=== PATIENT | female | born 1990 | race Caucasian/White ===

== ENCOUNTER 2024-01-14 15:09 | Emergency (ER) | payer OTHER, SELFPAY ==
--- NOTE | ~2024-01-14 | XR_ITS ---
XR foot LT min 3V Ordering provider: GARFIELD Jesus History: . INVERSION INJURY, 5TH METATARSAL PAIN, HX TIB/FIB FX . Comparison: None. FINDINGS: BONES: No acute fracture. Postoperative changes in the distal tibia. Minimal lateral subluxation the proximal interphalangeal joint of the fifth toe is marked excluded. JOINT SPACES: Normal. No tarsal coalition. SOFT TISSUES: Normal. IMPRESSION: No acute osseous abnormality left foot. Lateral subluxation of the proximal interphalangeal joint of the fifth toe is highly suggestive. Clinical correlation advised. Reviewed, dictated and finalized at location A. IMPRESSION: No acute osseous abnormality left foot. Lateral subluxation of the proximal int erphalangeal joint of the fifth toe is highly suggestive. Clinical correlation advised.
[2024-01-14 15:16] VITALS: BP 120/69; PULSE 107; RESP 16; TEMP 36.9; O2SAT 100
--- NOTE | 2024-01-14 15:42 | ED.EXTPRO ---
HPI - Extremity Problem General Chief complaint: Extremity Injury, Lower Stated complaint: fall, left foot inj History of Present Illness HPI Narrative: Patient presents with left ankle pain. Patient states she was walking to her landscape and rolled her left ankle pain along the lateral side of left ankle. No deformity noted no open areas noted no bruising noted. Related Data Home Medications Medication Instructions Recorded Confirmed sertraline 100 mg tablet (Zoloft) 100 mg PO DAILY 06/10/20 01/14/24 tirzepatide (weight loss) 5 mg/0.5 5 mg subcut WEEKLY 01/14/24 01/14/24 mL subcutaneous pen injector (Zepbound) Allergies Allergy/AdvReac Type Severity Reaction Status Date / Time No Known Drug Allergies Allergy Unknown Unknown Verified 01/14/24 15:25 Review of Systems Review of Systems: CONSTITUTIONAL: Denies chills, or sweats. Reports fever and generalized body aches EYES: Denies visual changes, redness, or discharge. ENT: Denies otalgia. Reports nasal congestion runny nose and sore throat CARDIOVASCULAR: Denies chest pain, palpitations, or edema. RESPIRATORY: Denies dyspnea. Reports occasional cough GASTROINTESTINAL: Denies abdominal pain, nausea, vomiting, or diarrhea. GENITOURINARY: Denies dysuria or hematuria. SKIN: Denies rash or itching. MUSCULOSKELETAL: Denies back pain, joint pain, or myalgia. Reports generalized body aches NEUROLOGIC: Denies headache, numbness, or weakness. PSYCHIATRIC: Denies anxiety or depression. [facility] Past Medical History Medical History Anxiety Condyloma acuminata Depression Migraines Surgical History Surgical History History of surgery leg surgery 2016 History of tonsillectomy and adenoidectomy 1995 Previous section x1 Lucinda teeth extracted 2009 Family History Family History Grandparent Breast cancer Other Diabetes mellitus uncle Mother Brain tumor Endometriosis Social History Social History (Updated 03/08/23 @ 13:52 by Berta Garcia CMA) Smoking status: Current every day smoker Alcohol intake: current Drinks per week: 1 Substance use: never Lack of Transportation: No Lack of Food: Never True Current Housing: I Have Housing Concerned About Future Housing: No Difficulty Paying Gas/Electric Bills: No Difficulty Paying for Meds: No Currently Unemployed: No Education: Master's Degree or Higher Difficulty w/ Childcare or Family Care: No Comments At time of signature, agree with nursing past medical, surgical, social and family history. There is no relevant family history pertinent to the presenting complaint Exam Narrative: GENERAL: Well-appearing, well-nourished, and in no acute distress. HEAD: Normocephalic, atraumatic. EYES: PERRLA and EOMI. ENT: Nares clear, no rhinorrhea or epistaxis. Mucous membranes moist. NECK: Supple. CHEST: Clear to auscultation. No respiratory distress. HEART: Regular rate and rhythm. No murmur heard. Normal peripheral pulses. ABDOMEN: Soft, nontender, nondistended, normal active bowel sounds. EXTREMITIES: Normal range of motion. No edema. Rolled ankle KIN INTACT. NORMAL DP PULSE, NORMAL CAP REFILL. NORMAL SENSATION.pain along lateral side of left ankle SKIN: Warm, dry, no rash. NEURO: No focal deficits. Alert and oriented x3. Jarred Coma Scale Eye Opening: Spontaneous 4 Jarred Coma Scale Motor: Obeys Commands 6 Jarred Coma Scale Verbal: Oriented 5 [place] Coma Scale Total 15 Course Course Level of Care: Express Care Visit Vital Signs Vital signs: Vital Signs Temperature 36.9 C 01/14/24 15:16 Pulse Rate 107 H 01/14/24 15:16 Respiratory Rate 16 01/14/24 15:16 Blood Pressure 120/69 01/14/24 15:16 Pulse Oximetry 100 01/14/24 15:16 Oxygen Delivery
== END 2024-01-14 15:52 | disposition home or self-care (01) ==
PROVIDERS: Emergency Provider Nurse Practitioner Family; PCP Internal Medicine Infectious Disease
DX: S93.402A Sprain of unspecified ligament of left ankle, initial encounter (principal); X50.9XXA Other and unspecified overexertion or strenuous movements or postures, initial encounter; F17.200 Nicotine dependence, unspecified, uncomplicated; F41.9 Anxiety disorder, unspecified; F32.A Depression, unspecified
CPT/HCPCS: 73630; 99213; G0463

== ENCOUNTER 2024-09-20 17:58 | Emergency (ER) | payer OTHER, SELFPAY ==
--- OUTSIDE RECORDS SUMMARY | 2024-09-20 18:00 | XMS_ITS | Clinical Summary ---
Author Organization [facility] Address [address] [place] [address] Phone Care Team Providers Care Supervisor Electronic Testing Name Role Phone Ty Willard MD Primary Care Provider [phone] Allergies No known active allergies Medications sertraline (ZOLOFT) 50 MG Tablet 04/06/2020 Active Active Problems No known active problems Social History Tobacco Use Types Packs/Day Years Used Date Smoking Tobacco: Never Smokeless Tobacco: Never Comments No Sex and Gender Information Value Date Recorded Sex Assigned at Not on file Legal Sex Female 3:22 PM CDT Gender Identity Not on file Sexual Orientation Not on file Last Filed Vital Signs Vital Sign Reading Time Taken Comments Blood Pressure 100/77 06/17/2020 3:16 PM ADMITTED ATTORNEYS Pulse 78 06/17/2020 3:16 PM ADMITTED ATTORNEYS Temperature 36.2 C (97.1 F) 06/17/2020 3:16 PM ADMITTED ATTORNEYS Respiratory Rate - - Oxygen Saturation 98% 06/17/2020 3:16 PM ADMITTED ATTORNEYS Inhaled Oxygen Concentration - - Weight - - Height - - Body Mass Index - - Plan of Treatment Health Maintenance Due Date Last Done Comments Hepatitis C Virus (HCV) Screening 1991 Hepatitis B Immunization (1 of 3 - 19+ 3-dose series) 09/01/2010 Influenza Immunization (#1) 12/31/202312/2019, 02/14/2019 SARS-COV-2 Immunization ( season) 2023 02/06/2021, 07/03/2020, 06/11/2020 Respiratory Syncytial Virus (RSV) Immunization (Adult) (1 - 1-dose 75+ series) 09/01/2066 Meningococcal Immunization (ACWY) Aged Out 04/21/2009 No longer eligible based on patient's age to complete this topic DTaP/Tdap/Td Immunization Discontinued 2019, 07/14/2005 TdaP Immunization Completed 06/25/2019, 07/14/2005 Pneumococcal Immunization Combined Aged Out No longer eligible based on patient's age to complete this topic Rotavirus Immunization Aged Out No lo nger eligible based on patient's age to complete this topic Care Teams Supervisor Electronic Testing Relationship Specialty Start Date End Date Ty Willard MD [address] [id number] PCP - General Internal Medicine 08/25/17
--- OUTSIDE RECORDS SUMMARY | 2024-09-20 18:00 | XMS_ITS | Referral Summary ---
Author Organization [facility] [address] Address [address] [place] [address] Phone Care Team Providers Care Safe Deposit Box Rental Clerk Name Role Phone Ty Willard MD Primary Care Provider [phone]- [phone] Kymberly Dalton MD Unavailable [phone] Allergies No known active allergies Medications sertraline (ZOLOFT) 100 mg tabletIndicatio ns:Major depressive disorder with single episode, in full remission TAKE 1 TABLET BY MOUTH EVERY DAY 90 tablet 1 4 Active roflumilast (Zoryve) 0.3 % cream Apply topically daily Active tirzepatide, weight loss, (Zepbound) 7.5 mg/0.5 mL pen injector Inject 0.5 mL (7.5 mg total) under the skin once a week 2 mL 2 5 Active Active Problems Problem Noted Date Diagnosed Date Sleep-disordered breathing 01/02/2024 Strep pharyngitis 07/12/2022 Assessment & Plan (07/12/2022 1:20 PM CDT): + exposure at work, symptoms started yesterday. Base on exam and exposure will treat for strep. Rxd amoxicillin as directed. OTC symptom management reviewed. Change toothbrush after finishing amox. Push fluids. Work not provided, copy in chart. Call with any changes or concerns. History of pre-eclampsia 07/31/2019 Pulsatile tinnitus of right ear 03/15/2019 Assessment & Plan (03/15/2019 4:40 PM ASSOCIATE SCIENTIST): Hearing test - call with results Good hydration 64 ounces caffeine free and soda free fluid Reduce salt intake Monitor Blood pressure Would recommend Imaging after delivery Nasal saline followed by Flonase 2 sprays into each nostril while looking down over the sink, do not sniff in or blow nose after use. Avoid ear cleaning techniques Avoid water to ears ETD (Eustachian tube dysfunction), right 019 Assessment & Plan (03/15/2019 4:40 PM ASSOCIATE SCIENTIST): Hearing test - call with results Good hydration 64 ounces caffeine free and soda free fluid Reduce salt intake Monitor Blood pressure Would recommend Imaging after delivery Nasal saline followed by Flonase 2 sprays into each nostril while looking down over the sink, do not sniff in or blow nose after use. Avoid ear cleaning techniques Avoid water to ears History of abnormal cervical Pap smear 9 Overview (07/31/2019): Note: h/o of colpo at age 20 Personal history of other en docrine, metabolic, and immunity disorders 02/14/2019 Overview (07/31/2019): Note: maternal 1/2 uncle type 1 diabetes Personal history of other (h ealed) physical injury and trauma 02/14/2019 Overview (07/31/2019): Note: bonifacio in left leg from a fall down a flight of stairs STD (female) 02/14/2019 Overview (07/31/2019): Note: pt has HPV Mental disorder 02/14/2019 Overview (07/31/2019): Note: generalized aniexity dx at age 16 Weight loss counseling, encounter for 01/23/2019 Assessment & Plan (05/17/2024 6:27 PM ASSOCIATE SCIENTIST): PATIENT HAS DONE EXCEPTIONALLY WELL ON ZEPBOUND . CURRENTLY ON A MAINTENANCE DOSAGE Acne vulgaris 04/16/2018 Migraine with aura and without status migrainosu s 04/10/2017 Routine physical examination 04/10/2017 Assessment & Plan (11/13/2023 6:23 PM CDT): IMMUNIZATIONS WERE REVIEWED BASED ON SYMPTOMS TIM IS SUSPECTED ARRANGE HOME SLEEP STUDY OBEISTY : LEVEL 2 ON MONJAURO PLUS DIETARY COUNSELLING DONE WELL BALJIT : CHRONIC AND STABLE DERMATOLOGY REFERRAL EYE EXAM AND DENTAL UPTODATE BANK COMPLIANCE OFFICER UPTODATE Closed fracture of shaft of tibia 10/16/2015 Overview (05/30/2019): 2016 - Left leg bonifacio tib/fib# Fall down stairs Fracture of base of fifth metatarsal bone 2015 Abnormal cervical Papanicolaou smear 08/10/2012 Overview (08/06/2016): Abnormal Pap smear of cervix Major depressive disorder wi th single episode, in full remission 04/30/2011 Overview (08/04/2016): Depression, major Assessment & Plan (05/17/2024 6:25 PM ASSOCIATE SCIENTIST): CHRONIC AND STABLE ON ZOLOFT 100 MG P OQDAY Resolved Problems Problem Noted Date Diagnosed Date Resolved Date History of gestational hypertension 07/31/2019 07/31/2019 care following delivery 07/15/2019 07/31/2019 Overview (07/17/2019): # ID: Afebrile. No signs/symptoms of infection. # Heme: EBL 950 mL. No symptoms acute blood loss anemia. CBC stable from 11.7- >10.3 # CV/Pulm: Pre-eclampsia without severe features - on no meds. Asymptomatic, denies GODFREY/RUQ pain/vision changes. CBC/CMP WNL, UPC 0.370. Bps well controlled nifedipine 30 mg XL daily, will monitor Bps today and consider initiation of medications # GI/: Tolerating PO. Voiding spontaneously. # Pain: Controlled with above regimen. # depression: well controlled on sertraline 50 mg, grieving appropriately, will continue followup loss coordinator and [facility] # Post DVT prophylaxis: Patient has the following moderate risk factors: BMI>30 and Preeclampsia. Her post prophylaxis plan is SCDs and early ambulation # MOC: Undecided # MOF: Both formula and # Disposition: Continue routine care considering discharge today pending BP control Elevated blood pressure affe cting in first trimester, antepartum 07/10/2019 0 Overview (07/10/2019): 07/09: BP 142/100, repeat 128/94 Denies h/o of cHTN Denies symptoms of preE Sent to [facility] for r/o preE- [facility] staff and fellow notified BP cuff sent to pharmacy, if d/c'd home recommend daily BP monitoring. Parameters and precautions reviewed. If another mild range BP > 4 hrs apart will be diagnosed with gHTN and will recommend weekly appointments/labs Gestational hypertension, third trimester 07/10/2019 07/31/2019 Overview (07/10/2019): - BP 142/100 (0945) and 124/90 (1315) - upc 0.172, CMP CBC and uric acid WNL 07/09 - although not 4h apart, strongly suspect gHTN - counseled 07/09 re: risks of progression to preeclampsia. Has BP cuff at home, recommended to check BP BID and keep log. Discussed recommendation for frequent surveillance. Per pt, plan is for delivery ~37 weeks, which is our recommendation for this likely diagnosis. Preeclampsia symptoms reviewed. 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 Counseled on risk of PTL and recommendations for immediate hospital evaluation for RICCO or ptl Discussed options for repeat US in 1 week but that it would not change our management at this time, pt declines repeat scan IUGR (intrauterine growth re striction) affecting care of mother, second trimester, fetus 2 05/31/2019 07/31/2019 Overview (07/10/2019): - Twin 2 with CDH and IUGR and iAEDF - Counseled no testing as survival is likely 0% at this gestational age and puts Twin 1 at risk - Plans to start 2x/weekly testing in [place] Diaphragmatic hernia, , affecting care of mother, antepartum, fetus 2 05/24/2019 0 Overview (07/10/2019): Left Lobe of Liver, stomach and bowel herniated in Left thorax. Dextrocardia LHR O/E 0.17 MRI TLV O/E 8% Genetics not performed but potentially interested later in . Father had a brother with CDH ( delivered at EGA 23 weeks). Patient has been counseled regarding poor prognosis for survival. Plans to relocate to [place] for full interventions of Twin 2. Plans to start 2x/weekly testing when she arrives. complicated by con genital diaphragmatic hernia 05/14/2019 07/31/2019 Overview (06/24/2019): FCC 05/14/19 Twin 2 (maternal left) Liver up LHR @ 23 weeks 0.52 (trace method) O/E LHR 0.24 Genetics - none Pt considering amniocentisis to be discussed at division meeting on 06/25 05/21 - MRI & echo completed - 8% Total Lung Volume, 19% liver up S/p consults with Medicine (Paige Martins) Pt relocating to [facility] ([facility]) in [place], [place] on 07/15 for delivery and treatment. Depression during in second trimester 05/08/2019 07/31/2019 Overview (06/25/2019): - Long standing depression, diagnosed age 16 - Zoloft 50mg daily Reports mood is stable Supervision of high-risk pre gnancy, unspecified trimester 05/02/2019 07/31/2019 Overview (06/26/2019): [x] Full M Care; Referring Provider: Perez Gonzalez [phone] [x] Dating Criteria:LMP unknown. US 04/09/19 with AUBREE 09/04/19 [x] Labs: Rh [A+], Ab [negative], Rubella [immune], HIV [non-reactive], HepBSAg [non-reactive], RPR [non-reactive], GC/CT [negative/negative] [x] Genetic Screenin02/14/19 Cystic Fibrosis: Negative [x] CBC/Hgb 13.9/42.5/plt 307 [x] UCx: 02/14/19 negative [x] Pap: NILM [] LD ASA (if indicated) starting at 12 weeks: [] [facility] referral (if indicated) 2nd Tri Labs: [x] Anatomy ultrasound: see above [x] CBC/1hr gtt at 24-28wks: 04/04/19: 12.3/37.0/plt 245; 05/25/19 11.5/34.6/plt 243; GTT 164, 3 hr GTT: 92/173/177/91- wnl [x] Flu Shot (Dec-Mar): 02/14/19 [x] Tdap (27-36wks): 06/25 3rd Tri Labs and delivery in [place]. Patient plans to relocate in 3 weeks. Dichorionic diamniotic twin in second trimester 05/02/2019 07/31/2019 Overview (07/10/2019): DCDA twins via letrozole and IUI. EDC by IUI conception date 09/09/19. US 05/09/19 shows: Twin 1: Vertex, 569g (78%ile), DVP 4.8cm, Posterior placenta with no previa, normal anatomy but incomplete feet views Twin 2: Vertex, 457g (19%ile), DVP 5.7cm, Anterior placenta. Large left CDH with LHR 0.058 and O/E LHR 2.6% in poor prognosis range with stomach, bowel, and portion of liver in chest with medistinal shift heart in right thorax. Previously counseled 06/25: Twin 1: EFW 1,552g (79%), MPV 6.6 Twin 2: EFW 1,067g (3%), presence of diastolic flow, MVP 8.4 (poly) O/E 16%- severe Plan: - Patient previously declined amniocentesis but now considering having it done when she relocates to [facility] - s/p Care Consult - s/p echocardiogram - s/p MRI - Consultation with Neonatology, PACT, surgery as needed - Serial ultrasounds during to monitor growth and twin 2 status - Plans to relocate to [place] next week and stay until delivery Immunizations Immunization Administration Dates Next Due HPV, Quadrivalent 10/02/2008,06/16/2008,04/10/20 08 Influenza, Quadrivalent, Spl it, Preservative Free, Intramuscular 02/07/2020,02/14/2019 Influenza, Trivalent, Preser vative Free, Intramuscular 05/17/2024 Influenza, Unspecified 02/20/2023(Deferred: Latonya ent Refused) Meningococcal Polysaccharide (Menomune) 04/21/2009 Pfizer SARS-CoV-2 Monovalent Vaccination (12+ Yrs) PURPLE 02/06/2021 Tdap 06/25/2019,07/14/2005 Varicella 06/16/2008,03/11/1997 Social History Tobacco Use Types Packs/Day Years Used Date Smoking Tobacco: Every Day Vaping Smokeless Tobacco: Never Tobacco Cessation:Ready to Q uit: Not Asked; Counseling Given: Not Answered Alcohol Use Standard Drinks/Week Comments No 0 (1 standard drink = 0.6 oz pur e alcohol) PHQ-2 Answer Date Recorded PHQ-2 Total Score (If total score is 3 or more points, staff should administer the PHQ-9) 0 11/13/2023 Comments Unknown Sex and Gender Information Value Date Recorded Sex Assigned at Not on file Legal Sex Female 1:45 AM ASSOCIATE SCIENTIST Gender Identity Female 08/12/2021 7:36 AM CDT Sexual Orientation Something else 08/12/2021 7: 36 AM CDT Last Filed Vital Signs Vital Sign Reading Time Taken Comments Blood Pressure 104/72 05/17/2024 3:14 PM ASSOCIATE SCIENTIST Pulse 81 05/17/2024 3:14 PM ASSOCIATE SCIENTIST Temperature 36.4 C (97.5 F) 05/17/2024 3:14 PM ASSOCIATE SCIENTIST Respiratory Rate 16 05/17/2024 3:14 PM ASSOCIATE SCIENTIST Oxygen Saturation 99% 05/17/2024 3:14 PM ASSOCIATE SCIENTIST Inhaled Oxygen Concentration - - Weight 79.1 kg (174 lb 6.4 oz) 05/17/2024 3:14 P M ASSOCIATE SCIENTIST Height 177.8 cm (5' 10 ) 05/17/2024 3:14 PM ASSOCIATE SCIENTIST Body Mass Index 25.02 05/17/2024 3:14 PM ASSOCIATE SCIENTIST Plan of Treatment Not on file Procedures Procedure Name Priority Date/Time Associated Diagnosis Comments HEPATITIS C ANTIBODY Routine 02/14/2019 THINPAP, REFLEX HPV ALL PTH Routine 08/10/2012 1:32 PM CDT from Last 3 Months or Most Recently Relevant to Health Maintenance Results * Hepatitis C antibody (02/14/2019) SCRIBED HCV ab non-reacti ve Blood specimen (specimen) us Perez Gonzalez MD LAB MICROBIOLOGY - GENERAL OR DERABLES Final Result * ThinPrep Pap, Reflex HPV all pth (08/10/2012 1:32 PM CDT) SOURCE: SEE NOTE [facility] RESULTS Comment:Cervix, Endocervix CLINICAL INFORMATION: SEE NOTE [facility] RES[facility] Comment:Information not prov ided LMP SEE NOTE [facility] RESULTS Comment:[id number] Previous Pap SEE NOTE [facility] Comment:[id number] Prev. Bx SEE NOTE [facility] RES[facility] Comment:INFORMATION NOT PROV IDED Pap, specimen adequacy SEE NOTE [facility] RESULTS Comment: Satisfactory for evaluation. Endocervical/transformation zone component absent. HPV interp SEE NOTE [facility] Comment:Negative for intraep ithelial lesion or malignancy. Lactobacillus species SEE NOTE [facility] RES[facility] Comment: This Pap test has been evaluated with computer assisted technology. Based on the cytology result, reflex High Risk HPV DNA testing was not performed. Rear Load Truck Driver SEE NOTE [facility] RESULTS Comment: MAF, CT(ASCP) Test performed at [facility] [address] [address] Director: SANDEE LOPEZ DO [facility] 08/10/2012 1:32 PM CDT us Susu Sousa LAB PATHOLOGY ORDERABLES Final R esult [facility] HISTORICAL RESULTS from Last 3 Months or Most Recently Relevant to Health Maintenance Insurance [employer] OPEN ACCESS HE[employer] OPEN ACCESS [employer] OPEN ACCESS [employer] OPEN ACCESS Advance Directives For more information, please contact: [phone] * Full Code (Latest Code Status on File) Date Activated Date Inactivated Comments 07/14/2019 1:50 AM 07/17/2019 4:45 PM * Full Code Date Activated Date Inactivated Comments 07/13/2019 9:42 PM 07/14/2019 1:50 AM Care Teams Safe Deposit Box Rental Clerk Relationship Specialty Start Date End Date Ty Willard MD [address] [place] [address] PCP - General 07/29/16 Kymberly Dalton MD [address] [facility] [address] [place] [address] Referring Physician Obstetrics and Gynecology 08/12/21
--- OUTSIDE RECORDS SUMMARY | 2024-09-20 18:00 | XMS_ITS | Encounter Summary ---
Author Organization [facility] Address [address] [place] [address] Phone Care Team Providers Care Heavy Cleaner Name Role Phone Ty Willard MD Primary Care Provider [phone]- [phone] Encounter Details Date Type Department Care Team (Late st Contact Info) Description 04/29/2022 Lab Requisition [facility] Services [address] [place] [address] Odilon Whitney MD [address] [place] [address] [address] [place] [address] Encounter for screening for COVID-19 Social History Tobacco Use Types Packs/Day Years Used Date Smoking Tobacco: Never Smokeless Tobacco: Never Comments No Sex and Gender Information Value Date Recorded Sex Assigned at Not on file Legal Sex Female 3:22 PM CDT Gender Identity Not on file Sexual Orientation Not on file documented as of this encounter Plan of Treatment Not on file documented as of this encounter Procedures Procedure Name Priority Date/Time Associated Diagnosis Comments SARS-COV-2 BY MOLECULAR Routine 04/29/2022 11:20 AM FONDANT PUFF MAKER Encounter for screening for COVID-19 documented in this encounter Results * SARS-COV-2 BY MOLECULAR (04/29/2022 11:20 AM FONDANT PUFF MAKER) SARSCOV2 NOT DETECTED (Referen ce Range for this test is Not Detected ) [facility] THERMOFISHER FAST DX 04/30/2022 1:07 PM FONDANT PUFF MAKER [facility] Comment:This test was perfor med by a RT-PCR method. Other Non-Phlebotomy Collection / Unknown 04/29/2022 11:20 AM FONDANT PUFF MAKER 04/29/2022 4:09 PM FONDANT PUFF MAKER Narrative [facility] - 04/30/2022 1:07 PM FONDANT PUFF MAKER Authorized Fact Sheets about this test for providers and patients are available at: https://www.fda.gov/medical-devices/gsdpbjobt-ylfkxdrdin-dqrynsl-devices/emergen -us e-authorizations us Odilon Whitney MD MICROBIOLOGY - GENERAL ORDERAB LES Final Result [facility] [address] [place] [address], documented in this encounter Visit Diagnoses Diagnosis Encounter for screening for COVID-19 documented in this encounter Additional Health Concerns Infection Onset Date Last Indicated Resolved Time COVID - 19 04/29/2022 04/29/2022 05/09/2022 12:1 9 AM FONDANT PUFF MAKER documented as of this encounter Care Teams Heavy Cleaner Relationship Specialty Start Date End Date Ty Willard MD [address] [address] PCP - General Internal Medicine 08/25/17 documented as of this encounter
--- OUTSIDE RECORDS SUMMARY | 2024-09-20 18:00 | XMS_ITS | Encounter Summary ---
Author Organization [facility] Healthcare Address [address] [place] [address] Care Team Providers Care Clinical Researcher Name Role Phone Ty Willard MD Primary Care Provider [phone] Kymberly Dalton MD Unavailable [phone] Encounter Details Date Type Department Care Team (Late st Contact Info) Description 01/14/2024 Orders Only [facility] [address] [place] [address] Scanning, Provider Social History Tobacco Use Types Packs/Day Years Used Date Smoking Tobacco: Every Day Vaping Smokeless Tobacco: Never Alcohol Use Standard Drinks/Week Comments No 0 (1 standard drink = 0.6 oz pur e alcohol) PHQ-2 Answer Date Recorded PHQ-2 Total Score (If total score is 3 or more points, staff should administer the PHQ-9) 0 11/13/2023 Comments Unknown Sex and Gender Information Value Date Recorded Sex Assigned at Not on file Legal Sex Female 1:45 AM SEISMIC SURVEY ASSISTANT Gender Identity Female 08/12/2021 7:36 AM CDT Sexual Orientation Something else 08/12/2021 7: 36 AM CDT documented as of this encounter Plan of Treatment Not on file documented as of this encounter Procedures Procedure Name Priority Date/Time Associated Diagnosis Comments SCAN - RADIOLOGY/IMAGING 01/14/2024 documented in this encounter Results * SCAN - RADIOLOGY/IMAGING (01/14/2024) Anatomical Region Laterality Modality Other us Provider Scanning Final Result documented in this encounter Visit Diagnoses Not on filedocumented in this encounter Care Teams Clinical Researcher Relationship Specialty Start Date End Date Ty Willard MD [address] [place] [address] PCP - General 07/29/16 Kymberly Dalton MD [address] [facility] [address] [place], [place] [id number] Referring Physician Obstetrics and Gynecology 08/12/21 documented as of this encounter
--- OUTSIDE RECORDS SUMMARY | 2024-09-20 18:00 | XMS_ITS | Encounter Summary ---
Author Organization [facility] Address [address] [place] [address] Phone Care Team Providers Care Composition Weatherboard Installer Name Role Phone Ty Willard MD Primary Care Provider [phone] Encounter Details Date Type Department Care Team (Late st Contact Info) Description 05/26/2021 Lab Requisition [facility] [address] [place] [address] Feli Guzman, GARMENT STEAMER, RUFFLING HEMMER [employer] [address] [place] [address] Encounter for pre-employment examination Social History Tobacco Use Types Packs/Day Years Used Date Smoking Tobacco: Never Smokeless Tobacco: Never Comments No Sex and Gender Information Value Date Recorded Sex Assigned at Not on file Legal Sex Female 3:22 PM CDT Gender Identity Not on file Sexual Orientation Not on file COVID-19 Exposure Response Date Recorded In the last month, have you been in contact with someone who was confirmed or suspected to have Coronavirus / COVID-19? Unable to assess 05/26/2021 1:55 PM PROPERTY UNDERWRITER documented as of this encounter Plan of Treatment Not on file documented as of this encounter Procedures Procedure Name Priority Date/Time Associated Diagnosis Comments QUANTIFERON-TB GOLD PLUS Routine 05/26/2021 10:20 AM PROPERTY UNDERWRITER Encounter for pre-employment examination documented in this encounter Results * QUANTIFERON-TB GOLD PLUS (05/26/2021 10:20 AM PROPERTY UNDERWRITER) NIL CONTROL 0.02 <8.01 IU/mL 05/28/2021 12:56 PM [facility] TB ANTIGEN 1 0.00 <0.35 IU/mL 05/28/2021 12:56 PM [facility] TB ANTIGEN 2 0.00 <0.35 IU/mL 05/28/2021 12:56 PM [facility] MITOGEN CONTROL 2.21 >0.49 IU/mL 05/28/19 12:56 PM [facility] INTEPRETATION TB NEGATIVE NEGATIVE, NEGATIVE (TB antigen response less than 25% of internal negative control value) 05/28/2021 12:56 PM [facility] Comment:No immune response t o Mycobacterium tuberculosis antigens was noted. M. tuberculosis infection unlikely. Blood Venipuncture / Unknown 05/26/2021 10:20 AM PROPERTY UNDERWRITER 05/26/2021 3:59 PM PROPERTY UNDERWRITER Narrative [facility] - 05/28/2021 12:56 PM PROPERTY UNDERWRITER A POSITIVE QUANTIFERON-TB GOLD PLUS RESULT SHOULD NOT BE THE SOLE OR DEFINITIVE BASIS FOR DETERMINING INFECTION WITH M. TUBERCULOSIS. Diagnosing or excluding tuberculosis disease, and assessing the probability of LTBI, requires a combination of epidemiological, historical, medical and diagnostic findings (e.g., acid fast bacilli (AFB) smear and culture, chest xray) that should be taken into account when interpreting QFT-Plus results. Furthermore, the magnitude of the measured gamma interferon level cannot be correlated to stage or degree of infection, level of immune responsiveness, or likelihood for progression to active disease. The Nil control adjusts for background (e.g., elevated levels of circulating gamma interferon or presence of heterophile antibodies). The Mitogen control serves as an internal positive control and verifies each specimen tested can produce a gamma interferon response. Low mitogen may occur with insufficient lymphocytes, reduced lymphocyte activity due to improper specimen handling, filling/mixing of the Mitogen tube, or inability of the patient's lymphocytes to generate gamma interferon. Infection with other Mycobacteria, including M. kansasii, M. szulgai, and M. marinum, may cause positive results. A negative QuantiFERON-TB Gold Plus result does not preclude the possibility of M. tuberculosis infection or tuberculosis disease: false negative results can be due to stage of infection (e.g., specimen obtained prior to the development of cellular immune response), co-morbid conditions which affect immune function, or other individual immunological factors. The minimum number of lymphocytes required for a reliable test result has not been established and may also be variable. The performance of the [place] format of the QuantiFERON-TB Gold Plus test has not been extensively evaluated with specimens from the following groups of individuals: 1. Individuals who have impaired or altered immune function such as those who have HIV infection or AIDS; those who have transplantation managed with immunosuppressive treatment; or others who receive immunosuppressive drugs (e.g., corticosteroids, methotrexate, azathioprine, cancer chemotherapy); and those who have other clinical conditions: diabetes, silicosis, chronic renal failure, hematological disorders (e.g., leukemia and lymphomas), and other specific malignancies (e.g., carcinoma of the head or neck and lung). 2. Individuals younger than age 17 years 3. women Feli Guzman APRN, CNP IMMUNOLOGY ORDERABLES F inal Result [facility] [address] [place] [address], documented in this encounter Visit Diagnoses Diagnosis Encounter for pre-employment examination Health examination of defined subpopulation documented in this encounter Additional Health Concerns Infection Onset Date Last Indicated Resolved Time COVID - 19 04/29/2022 04/29/2022 05/09/2022 12:1 9 AM PROPERTY UNDERWRITER documented as of this encounter Care Teams Composition Weatherboard Installer Relationship Specialty Start Date End Date Ty Willard MD [address] [address] PCP - General Internal Medicine 08/25/17 documented as of this encounter
--- OUTSIDE RECORDS SUMMARY | 2024-09-20 18:00 | XMS_ITS | Encounter Summary ---
Author Organization [facility] Address [address] [place] [address] Phone Care Team Providers Care Reclamation Kettle Tender Name Role Phone Ty Willard MD Primary Care Provider [phone] Perez Gonzalez MD Unavailable [phone] Kymberly Dalton MD Unavailable [phone] Encounter Details Date Type Department Care Team (Late st Contact Info) Description 08/30/2017 Orders Only [facility] [address] [place] [address] Ty Willard MD [address] [place] [address] Social History Tobacco Use Types Packs/Day Years Used Date Smoking Tobacco: Every Day Smokeless Tobacco: Never Alcohol Use Standard Drinks/Week Comments No 0 (1 standard drink = 0.6 oz pur e alcohol) Comments Unknown Sex and Gender Information Value Date Recorded Sex Assigned at Not on file Legal Sex Female 1:45 AM ADVISOR ADVOCATE ANGEL CO FOUNDER Gender Identity Female 08/12/2021 7:36 AM CDT Sexual Orientation Something else 08/12/2021 7: 36 AM CDT documented as of this encounter Plan of Treatment Not on file documented as of this encounter Procedures Procedure Name Priority Date/Time Associated Diagnosis Comments SCAN - RADIOLOGY/IMAGING 08/30/2017 9:14 AM CDT documented in this encounter Results * SCAN - RADIOLOGY/IMAGING (08/30/2017 9:14 AM CDT) Anatomical Region Laterality Modality Other Ty Willard MD Final Resu lt documented in this encounter Visit Diagnoses Not on filedocumented in this encounter Additional Health Concerns Infection Onset Date Last Indicated Resolved Time COVID: Suspected 07/12/2022 07/12/2022 07/12/2022 1:18 PM CDT COVID: Suspected 04/04/2023 04/04/2023 04/04/2023 9:02 AM ADVISOR ADVOCATE ANGEL CO FOUNDER COVID19 04/04/2023 04/04/2023 04/14/2023 3:05 AM ADVISOR ADVOCATE ANGEL [employer] FOUNDER COVID: Recovered Comment:Added based on recent COVID infection. 04/14/2023 04/17/2023 07/13/2023 3:05 AM C DT documented as of this encounter Care Teams Reclamation Kettle Tender Relationship Specialty Start Date End Date Ty Willard MD [address] [place] [address] PCP - General 07/29/16 Perez Gonzalez MD [address] [address] Screen Printing Machine Operator Helper Obstetrics and Gynecology 04/16/18 08/11/21 Kymberly Dalton MD [address] [facility] [address] [place] [address] Referring Physician Obstetrics and Gynecology 08/12/21 documented as of this encounter
--- OUTSIDE RECORDS SUMMARY | 2024-09-20 18:00 | XMS_ITS | Clinical Summary ---
Author Organization [facility] [address] Address [address] [facility] [address] Phone Care Team Providers Care Lineman Service Or Work Dispatcher Name Role Phone Ty Willard MD Primary Care Provider [phone] Kymberly Dalton MD Unavailable [phone] Allergies No known active allergies Medications sertraline [...] 03/15/2019 Assessment & Plan (03/15/2019 4:40 PM FLIGHT INFORMATION EXPEDITER): Hearing test - call with results Good [...] 019 Assessment & Plan (03/15/2019 4:40 PM FLIGHT INFORMATION EXPEDITER): Hearing test - call with results Good [...] 01/23/2019 Assessment & Plan (05/17/2024 6:27 PM FLIGHT INFORMATION EXPEDITER): PATIENT HAS DONE EXCEPTIONALLY WELL ON ZEPBOUND [...] DERMATOLOGY REFERRAL EYE EXAM AND DENTAL UPTODATE SUPERVISOR AREA UPTODATE Closed fracture of shaft of tibia 10/16/2015 Overview (05/30/2019): 2016 - Left leg bonifacio tib/fib# Fall down stairs Fracture of base of fifth metatarsal bone 2015 Abnormal cervical Papanicolaou smear 08/10/2012 Overview (08/06/2016): Abnormal Pap smear of cervix Major depressive disorder wi th single episode, in full remission 04/30/2011 Overview (08/04/2016): Depression, major Assessment & Plan (05/17/2024 6:25 PM FLIGHT INFORMATION EXPEDITER): CHRONIC AND STABLE ON ZOLOFT 100 MG [...] Denies symptoms of preE Sent to [facility] for r/o preE- [facility] staff and fellow notified BP cuff sent [...] - Plans to start 2x/weekly testing in [place] Diaphragmatic hernia, , affecting care of mother, [...] prognosis for survival. Plans to relocate to [place] for full interventions of Twin 2. Plans [...] with Medicine (Paige Martins) Pt relocating to [facility] in [place], [place] on 07/15 for delivery and treatment. Depression during in second trimester 05/08/2019 07/31/2019 Overview (06/25/2019): - Long standing depression, diagnosed age 16 - Zoloft 50mg daily Reports mood is stable Supervision of high-risk pre gnancy, unspecified trimester 05/02/2019 07/31/2019 Overview (06/26/2019): [x] Full M Care; Referring Provider: Perez Gonzalez [phone] [x] Dating Criteria:LMP unknown. US 04/09/19 with [...] 06/25 3rd [facility] and delivery in [place]. Patient plans to relocate in 3 weeks. [...] having it done when she relocates to [facility] - s/p Care Consult - s/p echocardiogram - s/p MRI - Consultation with Neonatology, PACT, surgery as needed - Serial ultrasounds during to monitor growth and twin 2 status - Plans to relocate to [place] next week and stay until delivery Immunizations Immunization Administration Dates Next Due HPV, Quadrivalent 10/02/2008,06/16/2008,04/10/20 08 Influenza, Quadrivalent, Spl it, Preservative Free, Intramuscular 02/07/2020,02/14/2019 Influenza, Trivalent, Preser vative Free, Intramuscular 05/17/2024 Influenza, Unspecified 02/20/2023(Deferred: Latonya ent Refused) Meningococcal Polysaccharide (Menomune) 04/21/2009 Pfizer SARS-CoV-2 Monovalent Vaccination (12+ Yrs) PURPLE 02/06/2021 Tdap 06/25/2019,07/14/2005 Varicella 06/16/2008,03/11/1997 Surgical History Surgery Date Site/Laterality Comments TONSILLECTOMY 05/01/1994 - 04/30/1995 Tonsillectomy OTHER SURGICAL HISTORY 05/01/2011 - 04/30/2012 implanon TIBIA FRACTURE SURGERY 016 WISDOM TOOTH EXTRACTION 05/01/2009 - 04/30/2010 Medical History Medical History Date Comments Migraines hormone related Family History Medical History Relation Name Comments Heart defect Brother bone skeletal defects. Brother Alcohol abuse Father Alcoholism; learning problems. Father Breast cancer Father's Sister Cancer, juan miguel ast; Breast cancer Maternal Grandmother Cancer , breast; Asthma Mother Asthma; Early menopause Mother Endometriosis Mother Other Mother Diabetes -Gesta tional; neurologic Mother Kidney disease Mother's Sister Renal dise ase; Diabetes Other uncle Alcohol abuse Paternal Grandfather Alcoho lism; Coronary artery disease Paternal Grandfather Coronary artery disease; Leukemia Paternal Grandmother Leukemi a; Relation Name Status Comments Brother Father Father's Sister Maternal Grandmother Mother Mother's Sister Other uncle Alive Paternal Grandfather Paternal Grandmother Social History Tobacco Use Types Packs/Day Years [...] on file Legal Sex Female 1:45 AM FLIGHT INFORMATION EXPEDITER Gender Identity Female 08/12/2021 7:36 AM CDT Sexual Orientation Something else 08/12/2021 7: 36 AM CDT Obstetrics History Para Term AB IAB SAB Ectopic Multiple Livin g Live Births 1 1 1 1 2 2 Date Outcome GA Total Labor Labor/2nd/3rd Weight Sex Type Anes PTL Quynh A1 A5 Name Clin 2019 31w 6d 0h 03m 0h 03m 1.9 kg (4 lb 3 oz) M CS-LT ranv Combin ed Spinal /Epidu ral Y Livin g 2 7 [facility] MEÑOO FAISAL Hernandes , Wilma Stein MD Complications:Premature Rupt ure of Membranes Delivery Location:[facility] Main C ampus ([facility] L AND D PROCEDURE) 2019 31w 6d 0h 02m 0h 02m 1.41 kg (3 lb 1.7 oz) M CS-LT ranv Combin ed Spinal /Epidu ral Y Livin g 2 2 [facility] MEÑOT RAMSEY Hernandes , Wilma Stein MD Complications:Premature Rupt ure of Membranes Delivery Location:[facility] Main C ampus ([facility] L AND D PROCEDURE) Last Filed Vital Signs Vital Sign Reading Time Taken Comments Blood Pressure 104/72 05/17/2024 3:14 PM FLIGHT INFORMATION EXPEDITER Pulse 81 05/17/2024 3:14 PM FLIGHT INFORMATION EXPEDITER Temperature 36.4 C (97.5 F) 05/17/2024 3:14 PM FLIGHT INFORMATION EXPEDITER Respiratory Rate 16 05/17/2024 3:14 PM FLIGHT INFORMATION EXPEDITER Oxygen Saturation 99% 05/17/2024 3:14 PM FLIGHT INFORMATION EXPEDITER Inhaled Oxygen Concentration - - Weight 79.1 kg (174 lb 6.4 oz) 05/17/2024 3:14 P M FLIGHT INFORMATION EXPEDITER Height 177.8 cm (5' 10 ) 05/17/2024 3:14 PM FLIGHT INFORMATION EXPEDITER Body Mass Index 25.02 05/17/2024 3:14 PM FLIGHT INFORMATION EXPEDITER Plan of Treatment Health Maintenance Due Date Last Done Comments Hepatitis B Screening 09/01/2009 Pneumococcal vaccine <65 (1 of 2 - PCV) 09/01/2010 Cervical Cancer Screening 08/10/2013 08/10/2012 Covid-19 Vaccine (5 - 2023-2 5 season) 2023 08/10/2022, 02/06/2021, 07/03/2020, Additional history exists Depression Screening 11/12/2024 11/13/2023, 11/09/2022, 08/12/2021 Regular Well Visit/Exam 18-64 11/12/2024, 11/09/2022, 08/12/2021, Additional history exists DTaP/Tdap/Td Vaccine (3 - Td or Tdap) 06/25/2029 06/25/2019, 07/14/2005 Varicella Vaccines Completed 06/16/2008, 03/11/1997 HPV Vaccines Completed 10/02/2008, 06/01, 04/10/2008 Hepatitis C Screening Completed 02/14/2019 Influenza Vaccine Completed 05/17/2024, , 02/14/2019 Procedures Procedure Name Priority Date/Time Associated Diagnosis Comments HEPATITIS C ANTIBODY Routine 02/14/2019 THINPAP, REFLEX HPV ALL PTH Routine 08/10/2012 1:32 PM CDT from Last 3 Months or Most Recently Relevant to Health Maintenance Results * Hepatitis C antibody (02/14/2019) SCRIBED HCV ab non-reacti ve Blood specimen (specimen) Perez Gonzalez MD LAB MICROBIOLOGY - GENERAL OR DERABLES Final Result * ThinPrep Pap, Reflex HPV all pth (08/10/2012 1:32 PM CDT) SOURCE: SEE NOTE [facility] HISTORICAL RESULTS Comment:Cervix, Endocervix CLINICAL INFORMATION: SEE NOTE [facility] HISTORICAL RESULTS Comment:Information not prov ided LMP SEE NOTE [facility] HISTORICAL RESULTS Comment:[id number] Previous Pap SEE NOTE [facility]IST[facility]ICAL RESULTS Comment:[id number] Prev. Bx SEE NOTE [facility] HISTORICAL RESULTS [...] Risk HPV DNA testing was not performed. Ship Rigger Apprentice SEE NOTE [facility] HISTORICAL RESULTS Comment: MAF, CT(ASCP) Test performed at [address] [address] Director: SANDEE LOPEZ DO P 08/10/2012 1:32 PM CDT us Susu Sousa LAB PATHOLOGY ORDERABLES Final R esult [facility] HISTORICAL RESULTS from Last 3 Months or Most Recently Relevant to Health Maintenance Insurance [place] OPEN ACCESS HEALTH[employer]ling OPEN ACCESS CIGNA OPEN ACCESS CIGNA OPEN ACCESS Advance Directives For more information, please contact: [phone] * Full Code (Latest Code Status on File) Date Activated Date Inactivated Comments 07/14/2019 1:50 AM 07/17/2019 4:45 PM * Full Code Date Activated Date Inactivated Comments 07/13/2019 9:42 PM 07/14/2019 1:50 AM Care Teams Lineman Service Or Work Dispatcher Relationship Specialty Start Date End Date Ty Willard MD [address] [place] [address] PCP - General 07/29/16 Kymberly Dalton MD [address] [facility] [address] [place] [address] Referring Physician Obstetrics and Gynecology 08/12/21
[2024-09-20 18:03] VITALS: BP 114/73; PULSE 83; RESP 16; TEMP 36.8; O2SAT 100
--- NOTE | 2024-09-20 18:08 | ED.ABDPAIN ---
HPI - Abdominal Pain General Chief Complaint: Abdominal Pain Stated Complaint: Abdominal Pain Time Seen by Provider: 09/20/24 18:18 Source: patient and RN notes reviewed Mode of arrival: ambulatory Limitations: no limitations History of Present Illness HPI narrative: 34 y/o female presented for c/o abdominal pain. Onset 1130 today. Pain started on left mid abdomen, currently reports the pain to the right lower abdomen. Pain started after eating. Endorses nausea. Denies urinary complaints, vomiting, diarrhea, or fever. LBM today, normal. LMP 08/28. Related Data Home Medications ?Medication ?Instructions ?Recorded ?Confirmed ?Last Taken ?Type sertraline 100 mg tablet (Zoloft) 100 mg PO DAILY 06/10/20 01/14/24 Unknown History tirzepatide (weight loss) 5 mg/0.5 5 mg subcut WEEKLY 01/14/24 01/14/24 Unknown History mL subcutaneous pen injector (Zepbound) Allergies Allergy/AdvReac Type Severity Reaction Status Date / Time No Known Drug Allergies Allergy Unknown Unknown Verified 01/14/24 15:25 Review of Systems Review of Systems: CONSTITUTIONAL: Denies body aches, fever, chills ENT: Denies rhinorrhea, congestion CARDIOVASCULAR: Denies chest pain, palpitations, or edema. RESPIRATORY: Denies cough or dyspnea. GASTROINTESTINAL: Endorses abdominal pain, nausea, Denies vomiting, diarrhea, hematochezia, melena GENITOURINARY: Denies dysuria, hematuria, or CVA tenderness. SKIN: Denies rash, itching, or wounds. MUSCULOSKELETAL: Denies back pain, joint pain, or myalgia. NEUROLOGIC: Denies headache, numbness, tingling, or weakness. All systems reviewed & are unremarkable except as noted in HPI and below PMFSH Past Medical History Medical History Anxiety Condyloma acuminata Depression Migraines Surgical History Surgical History History of surgery leg surgery 2016 History of tonsillectomy and adenoidectomy 1994 Previous section x1 [place] teeth extracted 2009 Family History Family History Grandparent Breast cancer Other Diabetes mellitus uncle Mother Brain tumor Endometriosis Social History Social History (Updated 03/08/23 @ 13:52 by Berta Garcia CMA) Smoking status: Current every day smoker Alcohol intake: current Drinks per week: 1 Substance use: never Lack of Transportation: No Lack of Food: Never True Current Housing: I Have Housing Concerned About Future Housing: No Difficulty Paying Gas/Electric Bills: No Difficulty Paying for Meds: No Currently Unemployed: No Education: Master's Degree or Higher Difficulty w/ Childcare or Family Care: No Comments At time of signature, I have reviewed and agree with nursing past medical, surgical, social and family history unless otherwise noted. Please see nursing chart for further information. There is no relevant family history pertinent to the presenting complaint Exam Narrative: GENERAL: mildly ill-appearing, appears in pain, in no acute distress. EYES: EOMI. Conjunctivae normal. ENT: Mucous membranes pink and moist. CHEST: No respiratory distress. Clear to auscultation. HEART: Regular rate and rhythm. No murmur appreciated. Normal peripheral pulses. ABDOMEN: abd soft, nondistended, normal active bowel sounds. Tender abdomen RLQ; guarding. No rebound tenderness, asymmetry or rigidity. EXTREMITIES: Normal range of motion. No edema. SKIN: Warm, dry, no rash. Capillary refill normal. Normal skin turgor. NEURO: No focal deficits. Alert and oriented x3. PSYCH: Normal affect. Course Course Emergency Course: Patient is aware of diagnosis, understands and agrees to treatment plan. Anticipatory guidance given. Patient agrees to follow-up as directed and is aware of reasons to seek care at the emergency department. Portions of this record may have been created with voice recognition software Level of Care: Express Care Visit Vital Signs Vital signs: Vital Signs Temperature 98.2 F 09/20/24 18:03 Pulse Rate 83 09/20/24 18:03 Respiratory Rate 16 09/20/24 18:03 Blood Pressure 114/73 09/20/24 18:03 Pulse Oximetry 100 09/20/24 18:03 Oxygen Delivery Room Air 09/20/24 18:03 Temperature 98.2 F 09/20/24 18:03 Pulse Rate 83 09/20/24 18:03 Respiratory Rate 16 09/20/24 18:03 Blood Pressure 114/73 09/20/24 18:03 Pulse Oximetry 100 09/20/24 18:03 Oxygen Delivery Room Air 09/20/24 18:03 MDM - Abdominal Pain MDM Narrative Medical decision making narrative: Pt with RLQ abdominal pain. Neg urine preg and Urine dip. Advised ER transfer, pt requests Anderosn. Differential Diagnosis Differential diagnosis: Likely other (appendicitis, peritonitis, AAA, crohn's, diverticulitis, hernia, ischemic colitis, mesenteric ischemia, endometriosis, mittelscmerz, ovarian cyst/torsion, PID ) Discharge Plan Discharge Clinical Impression: Abdominal pain Patient Disposition: Acute Care Hospital Condition: Stable Patient Language: Yemeni Prescriptions: No Action Zepbound 5 mg/0.5 mL pen injector 5 mg SUBCUT WEEKLY sertraline [Zoloft] 100 mg tablet 100 mg PO DAILY Follow-up/Referrals: Montse,MD yT [Primary Care Provider] -
[2024-09-20 18:44] LABS: BEDSIDEPREGUCG Negative (Negative); EDUAAPPEAR Clear; EDUABILI Negative (Negative); EDUABLOOD Negative (Negative); EDUACOLOR1 Yellow; EDUAGLUCOSE Negative (Negative); EDUAKETONE Negative (Negative); EDUALEUKO Trace (Negative); EDUANITRATE Negative (Negative); EDUAPROTEIN Negative (Negative); EDUAUROBILI 0.2
== END 2024-09-20 18:33 | disposition short-term general hospital (02) ==
PROVIDERS: Emergency Provider Nurse Practitioner Family; PCP Internal Medicine Infectious Disease
DX: R10.31 Right lower quadrant pain (principal); F17.200 Nicotine dependence, unspecified, uncomplicated; F41.9 Anxiety disorder, unspecified; F32.A Depression, unspecified
CPT/HCPCS: 81003; 81025; 87086; 99213; G0463

== ENCOUNTER 2024-09-20 19:08 | Observation (INO) | payer OTHER, SELFPAY ==
--- NOTE | ~2024-09-20 | CT_ITS ---
CLINICAL INDICATION: Right lower quadrant pain COMPARISON: None. TECHNIQUE: Multiple contiguous axial images of the abdomen and pelvis were performed following the ad ministration of with 100 mL Omnipaque-350 intravenous contrast The dose-length product (DLP) was 329.51 mGy-cm. Automated exposure control and iterative reconstruction technique were employed. FINDINGS/OBSERVATIONS: Visualized lower thorax: The bilateral lung bases are clear. The heart is of normal size, without pericardial effusion. Small hiatal hernia is present. Liver: The liver demonstrates homogeneous enhancement and is enlarged measuring 20 cm in longitudinal dimens ion. Gallbladder and biliary system: The gallbladder is only minimally distended, and otherwise unremarkable. Pancreas: The pancreas enhances homogeneously without ductal dilatation. Spleen: The spleen enhances homogeneously and is not enlarged. Kidneys: The bilateral kidneys enhance symmetrically without hydronephrosis or renal calculi. Adrenal glands: Unremarkable. Gastrointestinal tract: Fecal stasis within the colon. Appendix: The appendix is distended. The appendix measures 13 mm in caliber Vasculature: Unremarkable. Lymph nodes: No pathologically enlarged or morphologically suspicious lymph nodes within the retroperitoneum or at the root of the mesentery. Pelvic structures: The bladder is distended, and otherwise unremarkable. The uterus is anteverted and anteflexed. Body wall and musculoskeletal: Small fat-containing umbilical hernia. No significant degenerative disease within the lower thoracic or lumbosacral spine. IMPRESSION: Periappendiceal inflammatory change within the lower abdomen (the gauge must be pretty large) for whi ch acute cholecystectomy is suggested. Reviewed, dictated and finalized at location A. IMPRESSION: Periappendiceal inflammatory change within the lower abdomen (the gauge must be pretty large) for which acute cholecystectomy is suggested.
--- OUTSIDE RECORDS SUMMARY | 2024-09-20 19:10 | XMS_ITS | Clinical Summary ---
Author Organization [facility] Address [address] [place] [address] Phone Care Team Providers Care Entertainment Dancer Name Role Phone Ty Willard MD Primary Care Provider [phone]- [phone] Allergies No known active allergies Medications sertraline [...] Comments Blood Pressure 100/77 06/17/2020 3:16 PM COVERING AND LINING SUPERVISOR Pulse 78 06/17/2020 3:16 PM COVERING AND LINING SUPERVISOR Temperature 36.2 C (97.1 F) 06/17/2020 3:16 PM COVERING AND LINING SUPERVISOR Respiratory Rate - - Oxygen Saturation 98% 06/17/2020 3:16 PM COVERING AND LINING SUPERVISOR Inhaled Oxygen Concentration - - Weight - [...] age to complete this topic Care Teams Entertainment Dancer Relationship Specialty Start Date End Date Ty Willard MD [address] [address] PCP - General Internal Medicine 08/25/17
--- OUTSIDE RECORDS SUMMARY | 2024-09-20 19:10 | XMS_ITS | Encounter Summary ---
Author Organization [facility] Address [address] [place] [address] Phone Care Team Providers Care Ironer Sock Name Role Phone Ty Willard MD Primary Care Provider +1- [phone] Perez Gonzalez MD Unavailable [phone] Kymberly Dalton MD Unavailable [phone] Encounter Details Date Type Department Care Team (Late st Contact Info) Description 08/30/2017 Orders Only [facility] [address] [place] [address] Ty Willard MD [address] [place] [address] Social History Tobacco Use Types Packs/Day Years Used Date Smoking Tobacco: Every Day Smokeless Tobacco: Never Alcohol Use Standard Drinks/Week Comments No 0 (1 standard drink = 0.6 oz pur e alcohol) Comments Unknown Sex and Gender Information Value Date Recorded Sex Assigned at Not on file Legal Sex Female 1:45 AM FUGITIVE DETECTIVE Gender Identity Female 08/12/2021 7:36 AM CDT [...] COVID: Suspected 04/04/2023 04/04/2023 04/04/2023 9:02 AM FUGITIVE DETECTIVE COVID19 04/04/2023 04/04/2023 04/14/2023 3:05 AM FUGITIVE DETECTIVE COVID: Recovered Comment:Added based on recent COVID infection. 04/14/2023 04/17/2023 07/13/2023 3:05 AM C DT documented as of this encounter Care Teams Ironer Sock Relationship Specialty Start Date End Date Ty Willard MD [address] [place] [address] PCP - General 07/29/16 Perez Gonzalez MD [address] [place] [address] [facility] Obstetrics and Gynecology 04/16/18 08/11/21 Kymberly Dalton MD [address] [facility] [address] [place] [address] Referring Physician Obstetrics and Gynecology 08/12/21 documented as of this encounter
--- OUTSIDE RECORDS SUMMARY | 2024-09-20 19:10 | XMS_ITS | Clinical Summary ---
Author Organization [facility] [address] Address [address] [place] [address] Phone Care Team Providers Care Co Pilot Name Role Phone Ty Willard MD Primary Care Provider [phone]- [phone] Kymberly Dalton MD Unavailable [phone] Allergies No known active allergies Medications sertraline [...] 03/15/2019 Assessment & Plan (03/15/2019 4:40 PM [facility]): Hearing test - call with results Good [...] 019 Assessment & Plan (03/15/2019 4:40 PM [facility]): Hearing test - call with results Good [...] 01/23/2019 Assessment & Plan (05/17/2024 6:27 PM [facility]): PATIENT HAS DONE EXCEPTIONALLY WELL ON ZEPBOUND [...] DERMATOLOGY REFERRAL EYE EXAM AND DENTAL UPTODATE GROUND [employer] SUPPORT UPTODATE Closed fracture of shaft of tibia 10/16/2015 Overview (05/30/2019): 2016 - Left leg bonifacio tib/fib# Fall down stairs Fracture of base of fifth metatarsal bone 2015 Abnormal cervical Papanicolaou smear 08/10/2012 Overview (08/06/2016): Abnormal Pap smear of cervix Major depressive disorder wi th single episode, in full remission 04/30/2011 Overview (08/04/2016): Depression, major Assessment & Plan (05/17/2024 6:25 PM [facility]): CHRONIC AND STABLE ON ZOLOFT 100 MG [...] cHTN Denies symptoms of preE Sent to [facility] for r/o preE- [facility] staff and fellow notified BP cuff sent [...] - Plans to start 2x/weekly testing in [place] Diaphragmatic hernia, , affecting care of mother, [...] prognosis for survival. Plans to relocate to [place] for full interventions of Twin 2. Plans [...] with Medicine (Paige Martins) Pt relocating to [facility] ([facility]) in [place], [place] on 07/15 for delivery and treatment. Depression during in second trimester 05/08/2019 07/31/2019 Overview (06/25/2019): - Long standing depression, diagnosed age 16 - Zoloft 50mg daily Reports mood is stable Supervision of high-risk pre gnancy, unspecified trimester 05/02/2019 07/31/2019 Overview (06/26/2019): [x] Full M Care; Referring Provider: Perez Gonzalez [phone] [x] Dating Criteria:LMP unknown. US 04/09/19 with [...] 06/25 3rd [facility] and delivery in [place]. Patient plans to relocate in 3 weeks. [...] having it done when she relocates to [facility] - s/p Care Consult - s/p echocardiogram - s/p MRI - Consultation with Neonatology, PACT, surgery as needed - Serial ultrasounds during to monitor growth and twin 2 status - Plans to relocate to [place] next week and stay until delivery Immunizations [...] on file Legal Sex Female 1:45 AM [facility] Gender Identity Female 08/12/2021 7:36 AM CDT [...] /Epidu ral Y Livin g 2 7 [facility] MEÑOO FAISAL Hernandes , Wilma Stein MD Complications:Premature Rupt ure of Membranes Delivery Location:[facility] Main C ampus ([facility] L AND D PROCEDURE) 2019 31w 6d 0h 02m 0h 02m 1.41 kg (3 lb 1.7 oz) M CS-LT ranv Combin ed Spinal /Epidu ral Y Livin g 2 2 [facility] MEÑOT RAMSEY Hernandes , Wilma Stein MD Complications:Premature Rupt ure of Membranes Delivery Location:[facility] Main C ampus ([facility] L AND D PROCEDURE) Last Filed Vital Signs Vital Sign Reading Time Taken Comments Blood Pressure 104/72 05/17/2024 3:14 PM [facility] Pulse 81 05/17/2024 3:14 PM [facility] Temperature 36.4 C (97.5 F) 05/17/2024 3:14 PM [facility] Respiratory Rate 16 05/17/2024 3:14 PM [facility] Oxygen Saturation 99% 05/17/2024 3:14 PM [facility] Inhaled Oxygen Concentration - - Weight 79.1 kg (174 lb 6.4 oz) 05/17/2024 3:14 P M [facility] Height 177.8 cm (5' 10 ) 05/17/2024 3:14 PM [facility] Body Mass Index 25.02 05/17/2024 3:14 PM [facility] Plan of Treatment Health Maintenance Due Date [...] ided LMP SEE NOTE [facility] RES[facility] Comment:[id number] Previous Pap SEE NOTE [facility] Comment:[id number] Prev. Bx SEE NOTE [facility]ORICAL RESULTS [...] Risk HPV DNA testing was not performed. Roof Truss Machine Tender SEE NOTE [facility] Comment: MAF, CT(ASCP) Test performed at [address] [address] Director: ASNDEE LOPEZ DO P 08/10/2012 1:32 PM CDT us Susu Sousa LAB PATHOLOGY ORDERABLES Final R esult [facility] HISTORICAL RESULTS from Last 3 Months or Most Recently Relevant to Health Maintenance Insurance [employer] OPEN ACCESS [employer] OPEN ACCESS CIGNA OPEN ACCESS CIGNA OPEN ACCESS Advance Directives For more information, please contact: [phone] * Full Code (Latest Code Status on File) Date Activated Date Inactivated Comments 07/14/2019 1:50 AM 07/17/2019 4:45 PM * Full Code Date Activated Date Inactivated Comments 07/13/2019 9:42 PM 07/14/2019 1:50 AM Care Teams Co Pilot Relationship Specialty Start Date End Date Ty Willard MD [address] [address] PCP - General 07/29/16 Kymberly Dalton MD [address] [facility] [address] [place] [address] Referring Physician Obstetrics and Gynecology 08/12/21
--- OUTSIDE RECORDS SUMMARY | 2024-09-20 19:10 | XMS_ITS | Encounter Summary ---
Author Organization [facility] Address [address] [place] [address] Phone Care Team Providers Care Luggage Repairer Name Role Phone Ty Willard MD Primary Care Provider [phone] Encounter Details Date Type Department Care Team (Late st Contact Info) Description 05/26/2021 Lab Requisition [facility] Laboratory Services [address] [place] [address] Feli Guzman, FRUIT II FARMWORKER, CUT OFF [employer] [address] [place] [address] Encounter for pre-employment examination Social History Tobacco [...] COVID-19? Unable to assess 05/26/2021 1:55 PM MAMMOGRAPHY TECHNICIAN documented as of this encounter Plan of Treatment Not on file documented as of this encounter Procedures Procedure Name Priority Date/Time Associated Diagnosis Comments QUANTIFERON-TB GOLD PLUS Routine 05/26/2021 10:20 AM MAMMOGRAPHY TECHNICIAN Encounter for pre-employment examination documented in this encounter Results * QUANTIFERON-TB GOLD PLUS (05/26/2021 10:20 AM MAMMOGRAPHY TECHNICIAN) NIL CONTROL 0.02 <8.01 IU/mL 05/28/2021 12:[address] [facility] TB ANTIGEN 1 0.00 <0.35 IU/mL 05/28/2021 12:[address] [facility] TB ANTIGEN 2 0.00 <0.35 IU/mL 05/28/2021 12:[address] [facility] MITOGEN CONTROL 2.21 >0.49 IU/mL 05/28/19 12:[address] [facility] INTEPRETATION TB NEGATIVE NEGATIVE, NEGATIVE (TB antigen response less than 25% of internal negative control value) 05/28/2021 12:[address] [facility] Comment:No immune response t o Mycobacterium tuberculosis antigens was noted. M. tuberculosis infection unlikely. Blood Venipuncture / Unknown 05/26/2021 10:20 AM MAMMOGRAPHY TECHNICIAN 05/26/2021 3:59 PM MAMMOGRAPHY TECHNICIAN Narrative [facility] - 05/28/2021 12:56 PM MAMMOGRAPHY TECHNICIAN A POSITIVE QUANTIFERON-TB GOLD PLUS RESULT SHOULD [...] APRN, CNP IMMUNOLOGY ORDERABLES F inal Result [facility] [address] [place] [address], documented in this encounter Visit Diagnoses Diagnosis Encounter for pre-employment examination Health examination of defined subpopulation documented in this encounter Additional Health Concerns Infection Onset Date Last Indicated Resolved Time COVID - 19 04/29/2022 04/29/2022 05/09/2022 12:1 9 AM MAMMOGRAPHY TECHNICIAN documented as of this encounter Care Teams Luggage Repairer Relationship Specialty Start Date End Date Ty Willard MD [address] [address] PCP - General Internal Medicine 08/25/17 documented as of this encounter
--- OUTSIDE RECORDS SUMMARY | 2024-09-20 19:10 | XMS_ITS | Encounter Summary ---
Author Organization [facility] Address [address] [place] [address] Phone Care Team Providers Care Skin Washer Name Role Phone Ty Willard MD Primary Care Provider [phone]- [phone] Encounter Details Date Type Department Care Team (Late st Contact Info) Description 04/29/2022 Lab Requisition [facility] Laboratory Services [address] [place] [address] Odilon Whitney MD [address] [place] [address] [address] [place] [address] Encounter for screening for COVID-19 Social History [...] SARS-COV-2 BY MOLECULAR Routine 04/29/2022 11:20 AM SPAGHETTI MACHINE OPERATOR Encounter for screening for COVID-19 documented in this encounter Results * SARS-COV-2 BY MOLECULAR (04/29/2022 11:20 AM SPAGHETTI MACHINE OPERATOR) SARSCOV2 NOT DETECTED (Referen ce Range for this test is Not Detected ) [facility] THERMOFISHER FAST DX 04/30/2022 1:07 PM SPAGHETTI MACHINE OPERATOR [facility] Comment:This test was perfor med by a RT-PCR method. Other Non-Phlebotomy Collection / Unknown 04/29/2022 11:20 AM SPAGHETTI MACHINE OPERATOR 04/29/2022 4:09 PM SPAGHETTI MACHINE OPERATOR Narrative [facility] - 04/30/2022 1:07 PM SPAGHETTI MACHINE OPERATOR Authorized Fact Sheets about this test for providers and patients are available at: https://www.fda.gov/medical-devices/qwgazrxoq-ohcwzbxlfy-izulcuj-devices/emergen -us e-authorizations us Odilon Whitney MD MICROBIOLOGY - GENERAL ORDERAB LES Final Result [facility] [address] [place] [address], documented in this encounter Visit Diagnoses Diagnosis Encounter for screening for COVID-19 documented in this encounter Additional Health Concerns Infection Onset Date Last Indicated Resolved Time COVID - 19 04/29/2022 04/29/2022 05/09/2022 12:1 9 AM SPAGHETTI MACHINE OPERATOR documented as of this encounter Care Teams Skin Washer Relationship Specialty Start Date End Date Ty Willard MD [address] [address] PCP - General Internal Medicine 08/25/17 documented as of this encounter
--- OUTSIDE RECORDS SUMMARY | 2024-09-20 19:11 | XMS_ITS | Referral Summary ---
Author Organization [facility] [address] Address [address] [place] [address] Phone Care Team Providers Care Check Examiner Name Role Phone Ty Willard MD Primary Care Provider +1- [phone] Kymberly Dalton MD Unavailable [phone] Allergies No known active allergies Medications sertraline [...] 03/15/2019 Assessment & Plan (03/15/2019 4:40 PM COMMERCIAL LOAN SPECIALIST): Hearing test - call with results Good [...] 019 Assessment & Plan (03/15/2019 4:40 PM COMMERCIAL LOAN SPECIALIST): Hearing test - call with results Good [...] 01/23/2019 Assessment & Plan (05/17/2024 6:27 PM COMMERCIAL LOAN SPECIALIST): PATIENT HAS DONE EXCEPTIONALLY WELL ON ZEPBOUND [...] DERMATOLOGY REFERRAL EYE EXAM AND DENTAL UPTODATE MUTUAL FUND MANAGER UPTODATE Closed fracture of shaft of tibia 10/16/2015 Overview (05/30/2019): 2016 - Left leg bonifacio tib/fib# Fall down stairs Fracture of base of fifth metatarsal bone 2015 Abnormal cervical Papanicolaou smear 08/10/2012 Overview (08/06/2016): Abnormal Pap smear of cervix Major depressive disorder wi th single episode, in full remission 04/30/2011 Overview (08/04/2016): Depression, major Assessment & Plan (05/17/2024 6:25 PM COMMERCIAL LOAN SPECIALIST): CHRONIC AND STABLE ON ZOLOFT 100 MG [...] Denies symptoms of preE Sent to [facility] for r/o preE- [facility] staff and fellow notified BP cuff sent [...] - Plans to start 2x/weekly testing in [place] Diaphragmatic hernia, , affecting care of mother, [...] prognosis for survival. Plans to relocate to [place] for full interventions of Twin 2. Plans [...] with Medicine (Paige Martins) Pt relocating to [facility] ([facility]) in [place], [place] on 07/15 for delivery and treatment. Depression during in second trimester 05/08/2019 07/31/2019 Overview (06/25/2019): - Long standing depression, diagnosed age 16 - Zoloft 50mg daily Reports mood is stable Supervision of high-risk pre gnancy, unspecified trimester 05/02/2019 07/31/2019 Overview (06/26/2019): [x] Full M Care; Referring Provider: Perez Gonzalez [phone] [x] Dating Criteria:LMP unknown. US 04/09/19 with [...] 06/25 3rd Tri Labs and delivery in [place]. Patient plans to relocate in 3 weeks. [...] it done when she relocates to [facility] - s/p Care Consult - s/p echocardiogram - s/p MRI - Consultation with Neonatology, PACT, surgery as needed - Serial ultrasounds during to monitor growth and twin 2 status - Plans to relocate to [place] next week and stay until delivery Immunizations Immunization Administration Dates Next Due HPV, Quadrivalent 10/02/2008,06/16/2008,04/10/20 08 Influenza, Quadrivalent, Spl it, Preservative Free, Intramuscular 02/07/2020,02/14/2019 Influenza, Trivalent, Preser vative Free, Intramuscular 05/17/2024 Influenza, Unspecified 02/20/2023(Deferred: Latnoya ent Refused) Meningococcal Polysaccharide (Menomune) 04/21/2009 Pfizer [...] on file Legal Sex Female 1:45 AM COMMERCIAL LOAN SPECIALIST Gender Identity Female 08/12/2021 7:36 AM CDT Sexual Orientation Something else 08/12/2021 7: 36 AM CDT Last Filed Vital Signs Vital Sign Reading Time Taken Comments Blood Pressure 104/72 05/17/2024 3:14 PM COMMERCIAL LOAN SPECIALIST Pulse 81 05/17/2024 3:14 PM COMMERCIAL LOAN SPECIALIST Temperature 36.4 C (97.5 F) 05/17/2024 3:14 PM COMMERCIAL LOAN SPECIALIST Respiratory Rate 16 05/17/2024 3:14 PM COMMERCIAL LOAN SPECIALIST Oxygen Saturation 99% 05/17/2024 3:14 PM COMMERCIAL LOAN SPECIALIST Inhaled Oxygen Concentration - - Weight 79.1 kg (174 lb 6.4 oz) 05/17/2024 3:14 P M COMMERCIAL LOAN SPECIALIST Height 177.8 cm (5' 10 ) 05/17/2024 3:14 PM COMMERCIAL LOAN SPECIALIST Body Mass Index 25.02 05/17/2024 3:14 PM COMMERCIAL LOAN SPECIALIST Plan of Treatment Not on file Procedures [...] ided LMP SEE NOTE [facility]OR[facility] RESULTS Comment:[id number] Previous Pap SEE NOTE [facility]OR[facility] RESULTS Comment:[id number] Prev. Bx SEE NOTE [facility]ORICAL RESULTS [...] Risk HPV DNA testing was not performed. Pododermatologist SEE NOTE [facility] RESULTS Comment: MAF, CT(ASCP) Test performed at [facility] [address] [address] Director: SANDEE LOPEZ DO [facility] 08/10/2012 1:32 PM CDT us Susu Sousa LAB PATHOLOGY ORDERABLES Final R esult [facility] HISTORICAL RESULTS from Last 3 Months or Most Recently Relevant to Health Maintenance Insurance [employer] OPEN ACCESS [employer] OPEN ACCESS [employer] OPEN ACCESS [employer] OPEN ACCESS Advance Directives For more information, please contact: [phone] * Full Code (Latest Code Status on File) Date Activated Date Inactivated Comments 07/14/2019 1:50 AM 07/17/2019 4:45 PM * Full Code Date Activated Date Inactivated Comments 07/13/2019 9:42 PM 07/14/2019 1:50 AM Care Teams Check Examiner Relationship Specialty Start Date End Date Ty Willard MD [address] [place] [address] PCP - General 07/29/16 Kymberly Dalton MD [address] [facility] [address] [place] [address] Referring Physician Obstetrics and Gynecology 08/12/21
--- OUTSIDE RECORDS SUMMARY | 2024-09-20 19:11 | XMS_ITS | Encounter Summary ---
Author Organization [facility] Address [address] [place] [address] Care Team Providers Care Prop Attendant Name Role Phone Ty Willard MD Primary Care Provider [phone]- [phone] Kymberly Dalton MD Unavailable [phone] Encounter Details Date Type Department Care Team (Late st Contact Info) Description 01/14/2024 Orders Only [facility] [address] [place] [address] Scanning, Provider Social History Tobacco [...] on file Legal Sex Female 1:45 AM INSOLE FILLER Gender Identity Female 08/12/2021 7:36 AM CDT [...] on filedocumented in this encounter Care Teams Prop Attendant Relationship Specialty Start Date End Date Ty Willard MD [address] [place] [address] PCP - General 07/29/16 Kymberly Dalton MD [address] [facility] [address] [place], [place] [address] Referring Physician Obstetrics and Gynecology 08/12/21 documented as of this encounter
[2024-09-20 19:33] VITALS: BP 106/65; PULSE 79; RESP 16; TEMP 36.9; O2SAT 100
--- NOTE | 2024-09-20 20:27 | ED.ABDPAIN ---
HPI - Abdominal Pain General Chief Complaint: Abdominal Pain <Altaf De Anda MD - Last Filed: 09/20/24 22:01> Stated Complaint: RLQ pain since 1130, nausea <Altaf De Anda MD - Last Filed: 09/20/24 22:01> Time Seen by Provider: 09/20/24 20:12 <Altaf De Anda MD - Last Filed: 09/20/24 22:01> Source: patient <Aletha Fam PA-C - Last Filed: 09/21/24 00:10> Mode of arrival: ambulatory <Aletha Fam PA-C - Last Filed: 09/21/24 00:10> Limitations: no limitations <Aletha Fam PA-C - Last Filed: 09/21/24 00:10> History of Present Illness HPI narrative: Patient is a 34-year-old female who presents ER with right lower quadrant abdominal pain. Pain started earlier this morning 11:30 a.m. in the upper abdomen. More left-sided. It has moved down to the right lower quadrant. Worse with movement. Associated nausea vomiting. No diarrhea. No fevers chills or sweats. She does have an appendix. No alleviating factors. <Altaf De Anda MD - Last Filed: 09/20/24 22:01> Patient is a 34-year-old female who presents ER with right lower quadrant abdominal pain. Pain started earlier this morning 11:30 a.m. in the left abdomen. It has moved over to the right lower quadrant. Worse with movement. Associated nausea and vomiting. No diarrhea. No fevers chills or sweats. She does have an appendix. No alleviating factors. <Aletha Fam PA-C - Last Filed: 09/21/24 00:10> Related Data Home Medications: Home Medications ?Medication ?Instructions ?Recorded ?Confirmed ?Last Taken ?Type sertraline 100 mg tablet (Zoloft) 100 mg PO DAILY 06/10/20 01/14/24 Unknown History tirzepatide (weight loss) 5 mg/0.5 5 mg subcut WEEKLY 01/14/24 01/14/24 Unknown History mL subcutaneous pen injector (Zepbound) <Altaf De Anda MD - Last Filed: 09/20/24 22:01> Allergies/Adverse Reactions: Allergies Allergy/AdvReac Type Severity Reaction Status Date / Time No Known Drug Allergies Allergy Unknown Unknown Verified 09/20/24 19:09 <Altaf De Anda MD - Last Filed: 09/20/24 22:01> Review of Systems Review of Systems: All systems reviewed & are unremarkable except as noted in HPI and below <Altaf De Anda MD - Last Filed: 09/20/24 22:01> Constitutional: Constitutional: Reports no additional constitutional complaints <Altaf De Anda MD - Last Filed: 09/20/24 22:01> Cardiovascular: Cardiovascular: Reports no additional cardiovascular complaints <Altaf De Anda MD - Last Filed: 09/20/24 22:01> Respiratory: Respiratory: Reports no additional respiratory complaints <Altaf De Anda MD - Last Filed: 09/20/24 22:01> Gastrointestinal: Gastrointestinal: Reports no additional gastrointestinal complaints <Altaf De Anda MD - Last Filed: 09/20/24 22:01> Genitourinary: Genitourinary: Reports no additional female genitourinary complaints <Altaf De Anda MD - Last Filed: 09/20/24 22:01> FORMERLY [facility], [facility] Past Medical History Medical History: Medical History Condyloma acuminata Migraines Anxiety Depression <Altaf De Anda MD - Last Filed: 09/20/24 22:01> Surgical History Surgical History: Surgical History History of surgery leg surgery 2016 History of tonsillectomy and adenoidectomy 1995 Bastian teeth extracted 2010 Previous section x1 <Altaf De Anda MD - Last Filed: 09/20/24 22:01> Family History Family History: Family History Grandparent Breast cancer Other Diabetes mellitus uncle Mother Brain tumor Endometriosis <Altaf De Anda MD - Last Filed: 09/20/24 22:01> Social History Social History: Social History Smoking status: Current every day smoker Alcohol intake: current Drinks per week: 1 Substance use: never Lack of Transportation: No Lack of Food: Never True Current Housing: I Have Housing Concerned About Future Housing: No Difficulty Paying Gas/Electric Bills: No Difficulty Paying for Meds: No Currently Unemployed: No Education: Master's Degree or Higher Difficulty w/ Childcare or Family Care: No <Altaf De Anda MD - Last Filed: 09/20/24 22:01> Exam Narrative: GENERAL: Uncomfortable-appearing, well-nourished, and in no acute distress. HEAD: Normocephalic, atraumatic. ENT: Mucous membranes moist. NECK: Supple. CHEST: Clear to auscultation. No respiratory distress. HEART: Regular rate and rhythm. N Normal peripheral pulses. ABDOMEN: Soft, mild diffuse tenderness but most tender in the right lower quadrant without guarding, nondistended. EXTREMITIES: Normal range of motion. No edema. SKIN: Warm, dry, no rash. NEURO: Alert and oriented x3. PSYCH: Normal mood and affect. <Altaf De Anda MD - Last Filed: 09/20/24 22:01> Course Course Emergency Course: ONESIMO to Aletha OLIVAS, CAIN pending. <Altaf De Anda MD - Last Filed: 09/20/24 22:01> Consultations Consultation #1: Spoke with general surgery. Patient may be admitted to Dr. Hernandez for further management <Aletha Fam PA-C - Last Filed: 09/21/24 00:10> Date: 09/20/24 <Aletha Fam PA-C - Last Filed: 09/21/24 00:10> Vital Signs Vital signs: Vital Signs Temperature 98.4 F 09/20/24 19:33 Pulse Rate 79 09/20/24 19:33 Respiratory Rate 16 09/20/24 19:33 Blood Pressure 106/65 09/20/24 19:33 Pulse Oximetry 100 09/20/24 19:33 Oxygen Delivery Room Air 09/20/24 19:33 Temperature 98.4 F 09/20/24 19:33 Pulse Rate 68 09/20/24 23:27 Respiratory Rate 19 09/20/24 23:27 Blood Pressure 103/56 L 09/20/24 23:27 Pulse Oximetry 100 09/20/24 23:27 Oxygen Delivery Room Air 09/20/24 19:33 <Altaf De Anda MD - Last Filed: 09/20/24 22:01> Vital Signs Temperature 98.4 F 09/20/24 19:33 Pulse Rate 79 09/20/24 19:33 Respiratory Rate 16 09/20/24 19:33 Blood Pressure 106/65 09/20/24 19:33 Pulse Oximetry 100 09/20/24 19:33 Oxygen Delivery Room Air 09/20/24 19:33 Temperature 98.4 F 09/20/24 19:33 Pulse Rate 68 09/20/24 23:27 Respiratory Rate 19 09/20/24 23:27 Blood Pressure 103/56 L 09/20/24 23:27 Pulse Oximetry 100 09/20/24 23:27 Oxygen Delivery Room Air 09/20/24 19:33 <Aletha Fam PA-C - Last Filed: 09/21/24 00:10> MDM - Abdominal Pain MDM Narrative Medical decision making narrative: Patient presents the emergency department for right lower quadrant abdominal pain. She is afebrile and nontoxic appearing. Her vitals are stable. CBC with leukocytosis to 12.7. Metabolic panel without concerning findings. Urine without evidence of infection. test is negative CT abdomen pelvis shows acute appendicitis. Patient started on IV antibiotics and hydrated in the ER. Will be admitted to general surgery for further management <Aletha Fam PA-C - Last Filed: 09/21/24 00:10> Differential Diagnosis Differential diagnosis: Likely acute appendicitis and calculus of kidney <Aletha Fam PA-C - Last Filed: 09/21/24 00:10> Lab Data Attestation: I reviewed the patient's lab results. <Aletha Fam PA-C - Last Filed: 09/21/24 00:10> Result diagrams: 09/20/24 20:54 09/20/24 20:54 <Altaf De Anda MD - Last Filed: 09/20/24 22:01> Labs: Lab Results 09/20/24 09/20/24 09/20/24 Range/Units 20:54 21:21 21:26 WBC 12.7 H (4.5-10.0) K/mm3 RBC 4.19 L (4.2-5.4) M/mm3 Hgb 12.5 (12.0-15.0) g/dL Hct 38.3 (37.0-47.0) % MCV 91.4 (80-100) fl MCH 29.8 (26-34) pg MCHC 32.6 (32-36) g/dl RDW 13.0 (11.5-14.5) % Plt Count 272 (150-375) k/mm3 MPV 11.1 H (7.4-10.4) fl Immature Gran % (Auto) 0.2 (0-0.5) % Neut % (Auto) 74.6 H (45.5-73.1) % Lymph % (Auto) 16.8 L (18.3-44.2) % [place] % (Auto) 6.7 (2.6-8.5) % Eos % (Auto) 1.4 (0-4.4) % Baso % (Auto) 0.3 (0.2-1.2) % Lymph # (Auto) 2.12 (0.9-3.2) K/mm3 [place] # (Auto) 0.9 H (0.1-0.6) K/mm3 Eos # (Auto) 0.2 (0-0.3) K/mm3 Baso # (Auto) 0.0 (0.0-0.1) K/mm3 Abs Immat Gran (auto) 0.03 (0.00-0.031) K/mm3 Absolute Neuts (auto) 9.4 H (1.3-6.7) K/mm3 Absolute Nucleated RBC 0.000 (0.0-0.012) K/mm3 Nucleated RBC % 0.0 (0.0-0.2) % Sodium 137 (137-145) mmol/L Potassium 3.5 (3.4-5.0) mmol/L Chloride 104 (98-107) mmol/L Carbon Dioxide 26 (22-30) mmol/L Anion Gap 7 (4-12) mmol/L BUN 11 (7-17) mg/dL Creatinine 0.76 (0.7-1.0) mg/dL Estim Creat Clear Calc 99 ml/min Estimated GFR > 60 (59 - ) Glucose 86 (65-110) mg/dL Calcium 8.8 (8.4-10.2) mg/dL Total Bilirubin 0.9 (0.2-1.3) mg/dL AST 25 (14-36) U/L ALT 14 (6-35) U/L Alkaline Phosphatase 56 (38-126) U/L Total Protein 7.0 (6.3-8.2) g/dL Albumin 4.0 (3.5-5.1) g/dL Lipase 101 (23-300) U/L Urine Color Yellow (Yellow) Urine Appearance Clear (Clear) Urine pH 5.5 (5.0-9.0) Ur Specific [place] 1.013 (1.001-1.035) Urine Protein Negative (Negative) mg/dL Urine Glucose (UA) Negative (Negative) mg/dL Urine Ketones Negative (Negative) mg/dL Ur Blood (Man) Negative (Negative) Urine Nitrate Negative (Negative) Urine Bilirubin Negative (Negative) Urine Urobilinogen 0.2 (<2.0) mg/dL Leukocyte Esterase Rfl Negative (Negative) CORONA/UL POC Urine HCG, Qual Negative (Negative) <Altaf De Anda MD - Last Filed: 09/20/24 22:01> Lab Results 09/20/24 09/20/24 09/20/24 Range/Units 20:54 21:21 21:26 WBC 12.7 H (4.5-10.0) K/mm3 RBC 4.19 L (4.2-5.4) M/mm3 Hgb 12.5 (12.0-15.0) g/dL Hct 38.3 (37.0-47.0) % MCV 91.4 (80-100) fl MCH 29.8 (26-34) pg MCHC 32.6 (32-36) g/dl RDW 13.0 (11.5-14.5) % Plt Count 272 (150-375) k/mm3 MPV 11.1 H (7.4-10.4) fl Immature Gran % (Auto) 0.2 (0-0.5) % Neut % (Auto) 74.6 H (45.5-73.1) % Lymph % (Auto) 16.8 L (18.3-44.2) % [place] % (Auto) 6.7 (2.6-8.5) % Eos % (Auto) 1.4 (0-4.4) % Baso % (Auto) 0.3 (0.2-1.2) % Lymph # (Auto) 2.12 (0.9-3.2) K/mm3 [place] # (Auto) 0.9 H (0.1-0.6) K/mm3 Eos # (Auto) 0.2 (0-0.3) K/mm3 Baso # (Auto) 0.0 (0.0-0.1) K/mm3 Abs Immat Gran (auto) 0.03 (0.00-0.031) K/mm3 Absolute Neuts (auto) 9.4 H (1.3-6.7) K/mm3 Absolute Nucleated RBC 0.000 (0.0-0.012) K/mm3 Nucleated RBC % 0.0 (0.0-0.2) % Sodium 137 (137-145) mmol/L Potassium 3.5 (3.4-5.0) mmol/L Chloride 104 (98-107) mmol/L Carbon Dioxide 26 (22-30) mmol/L Anion Gap 7 (4-12) mmol/L BUN 11 (7-17) mg/dL Creatinine 0.76 (0.7-1.0) mg/dL Estim Creat Clear Calc 99 ml/min Estimated GFR > 60 (59 - ) Glucose 86 (65-110) mg/dL Calcium 8.8 (8.4-10.2) mg/dL Total Bilirubin 0.9 (0.2-1.3) mg/dL AST 25 (14-36) U/L ALT 14 (6-35) U/L Alkaline Phosphatase 56 (38-126) U/L Total Protein 7.0 (6.3-8.2) g/dL Albumin 4.0 (3.5-5.1) g/dL Lipase 101 (23-300) U/L Urine Color Yellow (Yellow) Urine Appearance Clear (Clear) Urine pH 5.5 (5.0-9.0) Ur Specific [place] 1.013 (1.001-1.035) Urine Protein Negative (Negative) mg/dL Urine Glucose (UA) Negative (Negative) mg/dL Urine Ketones Negative (Negative) mg/dL Ur Blood (Man) Negative (Negative) Urine Nitrate Negative (Negative) Urine Bilirubin Negative (Negative) Urine Urobilinogen 0.2 (<2.0) mg/dL Leukocyte Esterase Rfl Negative (Negative) CORONA/UL POC Urine HCG, Qual Negative (Negative) <Aletha Fam PA-C - Last Filed: 09/21/24 00:10> Imaging Data Radiologist's impression: ITS Impressions Abdomen/Pelvis CT 09/20/24 22:32 IMPRESSION: Periappendiceal inflammatory change within the lower abdomen (the gauge must be pretty large) for which acute cholecystectomy is suggested. ADDENDUM: 09/21/24 0008 The fluid-filled appendix measures 13 mm in caliber and demonstrates surrounding inflammatory change for which acute appendicitis is suspected. <Altaf De Anda MD - Last Filed: 09/20/24 22:01> ITS Impressions Abdomen/Pelvis CT 09/20/24 22:32 IMPRESSION: Periappendiceal inflammatory change within the lower abdomen (the gauge must be pretty large) for which acute cholecystectomy is suggested. ADDENDUM: 09/21/24 0008 The fluid-filled appendix measures 13 mm in caliber and demonstrates surrounding inflammatory change for which acute appendicitis is suspected. <Aletha Fam PA-C - Last Filed: 09/21/24 00:10> Critical Care Time Critical Care Time Critical Care Time: Yes <Aletha Fam PA-C - Last Filed: 09/21/24 00:10> Total Critical Care Time: 35 <Aletha Fam PA-C - Last Filed: 09/21/24 00:10> Discharge Plan Discharge Clinical Impression: Acute appendicitis Qualifiers: Acute appendicitis type: with localized peritonitis Appendicitis gangrene presence: without gangrene Appendicitis perforation presence: without perforation Appendicitis abscess presence: without abscess Qualified Code(s): K35.30 - Acute appendicitis with localized peritonitis, without perforation or gangrene <Altaf De Anda MD - Last Filed: 09/20/24 22:01> Patient Disposition: Still a Patient <Altaf De Anda MD - Last Filed: 09/20/24 22:01> Condition: Stable <Altaf De Anda MD - Last Filed: 09/20/24 22:01>
--- OUTSIDE RECORDS SUMMARY | 2024-09-20 20:29 | XMS_ITS | Referral Summary ---
Author Organization [facility] [address] Address [address] [email or web address] [address] Phone Care Team Providers Care Principal Database Developer Name Role Phone Ty Willard MD Primary Care Provider [phone] Kymberly Dalton MD Unavailable [phone] Allergies No known active allergies Medications sertraline [...] 03/15/2019 Assessment & Plan (03/15/2019 4:40 PM MOTOR AND GENERATOR BRUSH CUTTER): Hearing test - call with results Good [...] 019 Assessment & Plan (03/15/2019 4:40 PM MOTOR AND GENERATOR BRUSH CUTTER): Hearing test - call with results Good [...] 01/23/2019 Assessment & Plan (05/17/2024 6:27 PM MOTOR AND GENERATOR BRUSH CUTTER): PATIENT HAS DONE EXCEPTIONALLY WELL ON ZEPBOUND [...] DERMATOLOGY REFERRAL EYE EXAM AND DENTAL UPTODATE CRISIS INTERVENTION SPECIALIST UPTODATE Closed fracture of shaft of tibia 10/16/2015 Overview (05/30/2019): 2016 - Left leg bonifacio tib/fib# Fall down stairs Fracture of base of fifth metatarsal bone 2015 Abnormal cervical Papanicolaou smear 08/10/2012 Overview (08/06/2016): Abnormal Pap smear of cervix Major depressive disorder wi th single episode, in full remission 04/30/2011 Overview (08/04/2016): Depression, major Assessment & Plan (05/17/2024 6:25 PM MOTOR AND GENERATOR BRUSH CUTTER): CHRONIC AND STABLE ON ZOLOFT 100 MG [...] cHTN Denies symptoms of preE Sent to [facility] for r/o preE- [facility] staff and fellow notified BP cuff sent [...] - Plans to start 2x/weekly testing in [place] Diaphragmatic hernia, , affecting care of mother, [...] prognosis for survival. Plans to relocate to [place] for full interventions of Twin 2. Plans [...] with Medicine (Paige Martins) Pt relocating to [facility] ([facility]) in [place], [place] on 07/15 for delivery and treatment. Depression during in second trimester 05/08/2019 07/31/2019 Overview (06/25/2019): - Long standing depression, diagnosed age 16 - Zoloft 50mg daily Reports mood is stable Supervision of high-risk pre gnancy, unspecified trimester 05/02/2019 07/31/2019 Overview (06/26/2019): [x] Full M Care; Referring Provider: Perez Gonzalez [phone] [x] Dating Criteria:LMP unknown. US 04/09/19 with [...] 06/25 3rd Tri Labs and delivery in [place]. Patient plans to relocate in 3 weeks. [...] having it done when she relocates to [facility] - s/p Care Consult - s/p echocardiogram - s/p MRI - Consultation with Neonatology, PACT, surgery as needed - Serial ultrasounds during to monitor growth and twin 2 status - Plans to relocate to [place] next week and stay until delivery Immunizations [...] on file Legal Sex Female 1:45 AM MOTOR AND GENERATOR BRUSH CUTTER Gender Identity Female 08/12/2021 7:36 AM CDT Sexual Orientation Something else 08/12/2021 7: 36 AM CDT Last Filed Vital Signs Vital Sign Reading Time Taken Comments Blood Pressure 104/72 05/17/2024 3:14 PM MOTOR AND GENERATOR BRUSH CUTTER Pulse 81 05/17/2024 3:14 PM MOTOR AND GENERATOR BRUSH CUTTER Temperature 36.4 C (97.5 F) 05/17/2024 3:14 PM MOTOR AND GENERATOR BRUSH CUTTER Respiratory Rate 16 05/17/2024 3:14 PM MOTOR AND GENERATOR BRUSH CUTTER Oxygen Saturation 99% 05/17/2024 3:14 PM MOTOR AND GENERATOR BRUSH CUTTER Inhaled Oxygen Concentration - - Weight 79.1 kg (174 lb 6.4 oz) 05/17/2024 3:14 P M MOTOR AND GENERATOR BRUSH CUTTER Height 177.8 cm (5' 10 ) 05/17/2024 3:14 PM MOTOR AND GENERATOR BRUSH CUTTER Body Mass Index 25.02 05/17/2024 3:14 PM MOTOR AND GENERATOR BRUSH CUTTER Plan of Treatment Not on file Procedures [...] ided LMP SEE NOTE [facility]OR[facility] RESULTS Comment:[id number] Previous Pap SEE NOTE [facility] RESULTS Comment:[id number] Prev. Bx SEE NOTE [facility]ORICAL RESULTS [...] Risk HPV DNA testing was not performed. Telephone Operators Supervisor SEE NOTE [facility] RESULTS Comment: MAF, CT(ASCP) Test performed at [email or web address] [address] [address] Director: SANDEE LOPEZ DO [facility] [place] 08/10/2012 1:32 PM CDT us Susu Sousa LAB PATHOLOGY ORDERABLES Final R esult [facility]ISTORICAL RESULTS from Last 3 Months or Most Recently Relevant to Health Maintenance Insurance [employer] OPEN ACCESS [employer] OPEN ACCESS [facility] OPEN ACCESS [employer] OPEN ACCESS Advance Directives For more information, please contact: [phone] * Full Code (Latest Code Status on File) Date Activated Date Inactivated Comments 07/14/2019 1:50 AM 07/17/2019 4:45 PM * Full Code Date Activated Date Inactivated Comments 07/13/2019 9:42 PM 07/14/2019 1:50 AM Care Teams Principal Database Developer Relationship Specialty Start Date End Date Ty Willard MD [address] [place] [address] PCP - General 07/29/16 Kymberly Dalton MD [address] [facility] [address] [place] [address] Referring Physician Obstetrics and Gynecology 08/12/21
--- OUTSIDE RECORDS SUMMARY | 2024-09-20 20:29 | XMS_ITS | Encounter Summary ---
Author Organization [facility] Address [address] [place] [address] Phone Care Team Providers Care Shipping Services Sales Representative Name Role Phone Ty Willard MD Primary Care Provider [phone] Perez Gonzalez MD Unavailable [phone] Kymberly Dalton MD Unavailable [phone] Encounter Details Date Type Department Care Team (Late st Contact Info) Description 08/30/2017 Orders Only [facility] [address] [place] [address] Ty Willard MD [address] [place] [address] Social History Tobacco Use Types Packs/Day Years Used Date Smoking Tobacco: Every Day Smokeless Tobacco: Never Alcohol Use Standard Drinks/Week Comments No 0 (1 standard drink = 0.6 oz pur e alcohol) Comments Unknown Sex and Gender Information Value Date Recorded Sex Assigned at Not on file Legal Sex Female 1:45 AM SOCIAL ECONOMIST Gender Identity Female 08/12/2021 7:36 AM CDT [...] COVID: Suspected 04/04/2023 04/04/2023 04/04/2023 9:02 AM SOCIAL ECONOMIST COVID19 04/04/2023 04/04/2023 04/14/2023 3:05 AM SOCIAL ECONOMIST COVID: Recovered Comment:Added based on recent COVID infection. 04/14/2023 04/17/2023 07/13/2023 3:05 AM C DT documented as of this encounter Care Teams Shipping Services Sales Representative Relationship Specialty Start Date End Date Ty Willard MD [address] [place] [address] PCP - General 07/29/16 Perez Gonzalez MD [address] [place] [address] Regional Safety Manager Obstetrics and Gynecology 04/16/18 08/11/21 Kymberly Dalton MD [address] [facility] [address] [place] [address] Referring Physician Obstetrics and Gynecology 08/12/21 documented as of this encounter
--- OUTSIDE RECORDS SUMMARY | 2024-09-20 20:29 | XMS_ITS | Encounter Summary ---
Author Organization [facility] Address [address] [place] [address] Phone Care Team Providers Care Photography Instructor Name Role Phone Ty Willard MD Primary Care Provider [phone] Encounter Details Date Type Department Care Team (Late st Contact Info) Description 04/29/2022 Lab Requisition [facility] [address] [place] [address] Odilon Whitney MD [address] [place] [address] [address] [place] [address] Encounter for screening for COVID-19 Social History [...] SARS-COV-2 BY MOLECULAR Routine 04/29/2022 11:20 AM BOARD OPERATOR Encounter for screening for COVID-19 documented in this encounter Results * SARS-COV-2 BY MOLECULAR (04/29/2022 11:20 AM BOARD OPERATOR) SARSCOV2 NOT DETECTED (Referen ce Range for this test is Not Detected ) [facility]MOF[facility] FAST DX 04/30/2022 1:07 PM BOARD OPERATOR [facility] Comment:This test was perfor med by a RT-PCR method. Other Non-Phlebotomy Collection / Unknown 04/29/2022 11:20 AM BOARD OPERATOR 04/29/2022 4:09 PM BOARD OPERATOR Narrative [facility] - 04/30/2022 1:07 PM BOARD OPERATOR Authorized Fact Sheets about this test for providers and patients are available at: https://www.fda.gov/medical-devices/ygjfoltrz-mseiqatnlm-iupcszn-devices/emergen -us e-authorizations us Odilon Whitney MD MICROBIOLOGY - GENERAL ORDERAB LES Final Result [facility] [address] [place] [address], documented in this encounter Visit Diagnoses Diagnosis Encounter for screening for COVID-19 documented in this encounter Additional Health Concerns Infection Onset Date Last Indicated Resolved Time COVID - 19 04/29/2022 04/29/2022 05/09/2022 12:1 9 AM BOARD OPERATOR documented as of this encounter Care Teams Photography Instructor Relationship Specialty Start Date End Date Ty Willard MD [address] [id number] PCP - General Internal Medicine 08/25/17 documented as of this encounter
--- OUTSIDE RECORDS SUMMARY | 2024-09-20 20:29 | XMS_ITS | Clinical Summary ---
Author Organization [facility] [address] Address [address] [place] [address] Phone Care Team Providers Care Director Of Restaurants Name Role Phone Ty Willard MD Primary Care Provider [phone]- [phone] Kymberly Dalton MD Unavailable [phone] Allergies No known active allergies Medications sertraline [...] 03/15/2019 Assessment & Plan (03/15/2019 4:40 PM TELEPHONE DIRECTORY DELIVERER): Hearing test - call with results Good [...] 019 Assessment & Plan (03/15/2019 4:40 PM TELEPHONE DIRECTORY DELIVERER): Hearing test - call with results Good [...] 01/23/2019 Assessment & Plan (05/17/2024 6:27 PM TELEPHONE DIRECTORY DELIVERER): PATIENT HAS DONE EXCEPTIONALLY WELL ON ZEPBOUND [...] DERMATOLOGY REFERRAL EYE EXAM AND DENTAL UPTODATE IMPREGNATOR AND DRIER UPTODATE Closed fracture of shaft of tibia 10/16/2015 Overview (05/30/2019): 2016 - Left leg bonifacio tib/fib# Fall down stairs Fracture of base of fifth metatarsal bone 2015 Abnormal cervical Papanicolaou smear 08/10/2012 Overview (08/06/2016): Abnormal Pap smear of cervix Major depressive disorder wi th single episode, in full remission 04/30/2011 Overview (08/04/2016): Depression, major Assessment & Plan (05/17/2024 6:25 PM TELEPHONE DIRECTORY DELIVERER): CHRONIC AND STABLE ON ZOLOFT 100 MG [...] cHTN Denies symptoms of preE Sent to [facility] for r/o preE- [facility] staff and fellow notified BP [...] (Paige Martins) Pt relocating to [facility] ([facility]) in [place], [place] on 07/15 for delivery and treatment. Depression during in second trimester 05/08/2019 07/31/2019 Overview (06/25/2019): - Long standing depression, diagnosed age 16 - Zoloft 50mg daily Reports mood is stable Supervision of high-risk pre gnancy, unspecified trimester 05/02/2019 07/31/2019 Overview (06/26/2019): [x] Full M Care; Referring Provider: Perez Gonzalez [phone] [x] Dating Criteria:LMP unknown. US 04/09/19 with [...] it done when she relocates to [facility] - s/p Care Consult - s/p [...] on file Legal Sex Female 1:45 AM TELEPHONE DIRECTORY DELIVERER Gender Identity Female 08/12/2021 7:36 AM CDT [...] /Epidu ral Y Livin g [address] [facility] MEÑOO FAISAL Hernandes , Wilma Stein MD Complications:Premature Rupt ure of Membranes Delivery Location:[facility] C ampus ([facility] L AND D PROCEDURE) 2019 31w 6d 0h 02m 0h 02m 1.41 kg (3 lb 1.7 oz) M CS-LT ranv Combin ed Spinal /Epidu ral Y Livin g [address] [facility] MEÑOT RAMSEY Hernandes , Wilma Stein MD Complications:Premature Rupt ure of Membranes Delivery Location:[facility] ([facility] L AND D PROCEDURE) Last Filed Vital Signs Vital Sign Reading Time Taken Comments Blood Pressure 104/72 05/17/2024 3:14 PM TELEPHONE DIRECTORY DELIVERER Pulse 81 05/17/2024 3:14 PM TELEPHONE DIRECTORY DELIVERER Temperature 36.4 C (97.5 F) 05/17/2024 3:14 PM TELEPHONE DIRECTORY DELIVERER Respiratory Rate 16 05/17/2024 3:14 PM TELEPHONE DIRECTORY DELIVERER Oxygen Saturation 99% 05/17/2024 3:14 PM TELEPHONE DIRECTORY DELIVERER Inhaled Oxygen Concentration - - Weight 79.1 kg (174 lb 6.4 oz) 05/17/2024 3:14 P M TELEPHONE DIRECTORY DELIVERER Height 177.8 cm (5' 10 ) 05/17/2024 3:14 PM TELEPHONE DIRECTORY DELIVERER Body Mass Index 25.02 05/17/2024 3:14 PM TELEPHONE DIRECTORY DELIVERER Plan of Treatment Health Maintenance Due Date [...] ided LMP SEE NOTE [facility] RES[facility] Comment:[id number] Previous Pap SEE NOTE [facility] RESULTS Comment:[id number] Prev. Bx SEE NOTE [facility]OR[facility] RESULTS [...] Risk HPV DNA testing was not performed. Director Of Science SEE NOTE [facility] RESULTS Comment: MAF, CT(ASCP) Test performed at [address] [address] Director: SANDEE LOPEZ DO P 08/10/2012 1:32 PM CDT us Susu Sousa LAB PATHOLOGY ORDERABLES Final R esult [facility]OR[facility] RESULTS from Last 3 Months or Most Recently Relevant to Health Maintenance Insurance [employer] OPEN ACCESS [employer] OPEN ACCESS [employer] OPEN ACCESS CIGNA OPEN ACCESS Advance Directives For more information, please contact: [phone] * Full Code (Latest Code Status on File) Date Activated Date Inactivated Comments 07/14/2019 1:50 AM 07/17/2019 4:45 PM * Full Code Date Activated Date Inactivated Comments 07/13/2019 9:42 PM 07/14/2019 1:50 AM Care Teams Director Of Restaurants Relationship Specialty Start Date End Date Ty Willard MD [address] [place] [address] PCP - General 07/29/16 Kymberly Dalton MD [address] [facility] [address] [place] [address] Referring Physician Obstetrics and Gynecology 08/12/21
--- OUTSIDE RECORDS SUMMARY | 2024-09-20 20:29 | XMS_ITS | Encounter Summary ---
Author Organization [facility] Healthcare Address [address] [place] [address] Care Team Providers Care Director Quality Assurance Name Role Phone Ty Willard MD Primary Care Provider [phone] Kymberly Dalton MD Unavailable [phone] Encounter Details Date Type Department Care Team (Late st Contact Info) Description 01/14/2024 Orders Only [facility] [address] [place] [address] Scanning, Provider Social History Tobacco [...] on file Legal Sex Female 1:45 AM RN NEUROSURGICAL Gender Identity Female 08/12/2021 7:36 AM CDT [...] on filedocumented in this encounter Care Teams Director Quality Assurance Relationship Specialty Start Date End Date Ty Willard MD [address] [place] [address] PCP - General 07/29/16 Kymberly Dalton MD [address] [facility] [address] [place], [place] [id number] Referring Physician Obstetrics and Gynecology 08/12/21 documented as of this encounter
--- OUTSIDE RECORDS SUMMARY | 2024-09-20 20:29 | XMS_ITS | Clinical Summary ---
Author Organization [facility] Address [address] [place] [address] Phone Care Team Providers Care Door Opener Name Role Phone Ty Willard MD Primary Care Provider [phone] Allergies No known active allergies Medications sertraline [...] Comments Blood Pressure 100/77 06/17/2020 3:16 PM SENIOR QUALITY ASSURANCE ANALYST Pulse 78 06/17/2020 3:16 PM SENIOR QUALITY ASSURANCE ANALYST Temperature 36.2 C (97.1 F) 06/17/2020 3:16 PM SENIOR QUALITY ASSURANCE ANALYST Respiratory Rate - - Oxygen Saturation 98% 06/17/2020 3:16 PM SENIOR QUALITY ASSURANCE ANALYST Inhaled Oxygen Concentration - - Weight - [...] age to complete this topic Care Teams Door Opener Relationship Specialty Start Date End Date Ty Willard MD [address] [id number] PCP - General Internal Medicine 08/25/17
--- OUTSIDE RECORDS SUMMARY | 2024-09-20 20:29 | XMS_ITS | Encounter Summary ---
Author Organization [facility] Address [address] [place] [address] Phone Care Team Providers Care Digital Media Buyer Name Role Phone Ty Willard MD Primary Care Provider [phone] Encounter Details Date Type Department Care Team (Late st Contact Info) Description 05/26/2021 Lab Requisition [facility] [address] [place] [address] Feli Guzman, MEDICAL CLAIMS SPECIALIST, MATERIAL STRESS TESTER [address] [place] [address] Encounter for pre-employment examination Social History Tobacco [...] COVID-19? Unable to assess 05/26/2021 1:55 PM RETAIL ACCOUNT EXECUTIVE documented as of this encounter Plan of Treatment Not on file documented as of this encounter Procedures Procedure Name Priority Date/Time Associated Diagnosis Comments QUANTIFERON-TB GOLD PLUS Routine 05/26/2021 10:20 AM RETAIL ACCOUNT EXECUTIVE Encounter for pre-employment examination documented in this encounter Results * QUANTIFERON-TB GOLD PLUS (05/26/2021 10:20 AM RETAIL ACCOUNT EXECUTIVE) NIL CONTROL 0.02 <8.01 IU/mL 05/28/2021 12:56 PM [facility] TB ANTIGEN 1 0.00 <0.35 IU/mL 05/28/2021 12:56 PM [facility] TB ANTIGEN 2 0.00 <0.35 IU/mL 05/28/2021 12:56 PM [facility] MITOGEN CONTROL 2.21 >0.49 IU/mL 05/28/19 12:56 PM [facility] INTEPRETATION TB NEGATIVE NEGATIVE, NEGATIVE (TB antigen response less than 25% of internal negative control value) 05/28/2021 12:56 PM [facility] Comment:No immune response t o Mycobacterium tuberculosis antigens was noted. M. tuberculosis infection unlikely. Blood Venipuncture / Unknown 05/26/2021 10:20 AM RETAIL ACCOUNT EXECUTIVE 05/26/2021 3:59 PM RETAIL ACCOUNT EXECUTIVE Narrative [facility] - 05/28/2021 12:56 PM RETAIL ACCOUNT EXECUTIVE A POSITIVE QUANTIFERON-TB GOLD PLUS RESULT SHOULD [...] APRN, CNP IMMUNOLOGY ORDERABLES F inal Result [facility] [address] [place] [address], documented in this encounter Visit Diagnoses Diagnosis Encounter for pre-employment examination Health examination of defined subpopulation documented in this encounter Additional Health Concerns Infection Onset Date Last Indicated Resolved Time COVID - 19 04/29/2022 04/29/2022 05/09/2022 12:1 9 AM RETAIL ACCOUNT EXECUTIVE documented as of this encounter Care Teams Digital Media Buyer Relationship Specialty Start Date End Date Ty Willard MD [address] [address] PCP - General Internal Medicine 08/25/17 documented as of this encounter
[2024-09-20] MEDS: SODIUM CHLORIDE 0.9% IV 1,000 ML 999 ML IV CONT ×2 (20:54→23:31)
[2024-09-20] MEDS: MORPHINE SULFATE (*CRX) 4 MG/ML INJ IV PUSH (20:55)
[2024-09-20] MEDS: ONDANSETRON INJ 4 MG/2 ML VIAL IV PUSH (20:55)
[2024-09-20 21:13] LABS: Basophils Percent Auto 0.3 % (0.2-1.2); Eosinophils Absolute Auto 0.2 K/mm3 (0-0.3); Eosinophils Percent Auto 1.4 % (0-4.4); Hematocrit 38.3 % (37.0-47.0); Hemoglobin 12.5 g/dL (12.0-15.0); Immature Granulocyte Absolute 0.03 K/mm3 (0.00-0.031); Immature Granulocyte Percent A 0.2 % (0-0.5); Lymphocytes Absolute Auto 2.12 K/mm3 (0.9-3.2); Lymphocytes Percent Auto 16.8 % (18.3-44.2); Mean Corpuscular HGB Conc 32.6 g/dl (32-36); Mean Corpuscular Hemoglobin 29.8 pg (26-34); Mean Corpuscular Volume 91.4 fl (80-100); Mean Platelet Volume 11.1 fl (7.4-10.4); Monocytes Absolute Auto 0.9 K/mm3 (0.1-0.6); Monocytes Percent Auto 6.7 % (2.6-8.5); Neutrophils Absolute Auto 9.4 K/mm3 (1.3-6.7); Neutrophils Percent Auto 74.6 % (45.5-73.1); Platelet Count Result 272 k/mm3 (150-375); Red Blood Count 4.19 M/mm3 (4.2-5.4); White Blood Count 12.7 K/mm3 (4.5-10.0)
[2024-09-20 21:25] LABS: Alanine Aminotransferase 14 U/L (6-35); Alkaline Phosphatase 56 U/L (38-126); Anion Gap 7 mmol/L (4-12); Aspartate Amino Transferase 25 U/L (14-36); Bilirubin,Total 0.9 mg/dL (0.2-1.3); Blood Urea Nitrogen 11 mg/dL (7-17); Calcium 8.8 mg/dL (8.4-10.2); Carbon Dioxide 26 mmol/L (22-30); Chloride 104 mmol/L (98-107); Estimated CRCL calculation 99 ml/min; Estimated Glomerular Filt Rate > 60; Glucose 86 mg/dL (65-110); Lipase 101 U/L (23-300); Potassium 3.5 mmol/L (3.4-5.0); Sodium 137 mmol/L (137-145)
[2024-09-20 21:26] VITALS: PULSE 59; RESP 16; O2SAT 100
[2024-09-20 21:29] LABS: Add Urine Microscopic? NO; Appearance Urine Clear (Clear); Bilirubin Urine Negative (Negative); Blood Urine Negative (Negative); Color Urine Yellow (Yellow); Glucose Urine UA Negative (Negative); Ketones Urine Negative (Negative); Leukocyte Esterase Ur Negative LEU/UL (Negative); Nitrate Urine Negative (Negative); Protein Urine Negative (Negative); Specific Grav Ur 1.013 (1.001-1.035); Urobilinogen Urine 0.2 mg/dL (<2.0); pH Urine 5.5 (5.0-9.0)
[2024-09-20 21:29] LABS: BEDSIDEPREGUCG Negative (Negative)
[2024-09-20 22:42] VITALS: BP 100/59; PULSE 71; RESP 18; O2SAT 100
[2024-09-20 23:27] VITALS: BP 103/56; PULSE 68; RESP 19; O2SAT 100
[2024-09-20] MEDS: PIPERACILLN/TAZ 3.375GM/NS50ML 3.375 GM/50 ML BAG IVPB (23:32)
--- NOTE | 2024-09-20 23:33 | WPDANESEPP ---
Anes - Eval Pre Procedure Procedure: Lap Appy Date/Time: 09/20/24 23:33 Surgeon: Mary Preop Diagnosis: appendicitis Pre Op Diagnosis: RLQ pain since 1130, nausea Patient Data Age: 34 Gender: F Height: 1.78 m Weight: 75.2 kg Last Vital Signs Temp 98.4 F 09/20/24 19:33 Pulse 68 09/20/24 23:27 Resp 19 09/20/24 23:27 BP 103/56 L 09/20/24 23:27 Pulse Ox 100 09/20/24 23:27 O2 Del Method Room Air 09/20/24 19:33 Allergies Allergy/AdvReac Type Severity Reaction Status Date / Time No Known Drug Allergies Allergy Unknown Unknown Verified 09/20/24 19:09 Home Medications ?Medication ?Instructions ?Recorded ?Confirmed ?Type sertraline 100 mg tablet (Zoloft) 100 mg PO DAILY 06/10/20 01/14/24 History tirzepatide (weight loss) 5 mg/0.5 5 mg subcut WEEKLY 01/14/24 01/14/24 History mL subcutaneous pen injector (Zepbound) Laboratory Tests 09/20/24 09/20/24 09/20/24 20:54 21:21 21:26 WBC 12.7 H K/mm3 (4.5-10.0) RBC 4.19 L M/mm3 (4.2-5.4) Hgb 12.5 g/dL (12.0-15.0) Hct 38.3 % (37.0-47.0) MCV 91.4 fl (80-100) MCH 29.8 pg (26-34) MCHC 32.6 g/dl (32-36) RDW 13.0 % (11.5-14.5) Plt Count 272 k/mm3 (150-375) MPV 11.1 H fl (7.4-10.4) Immature Gran % (Auto) 0.2 % (0-0.5) Neut % (Auto) 74.6 H % (45.5-73.1) Lymph % (Auto) 16.8 L % (18.3-44.2) Harlan % (Auto) 6.7 % (2.6-8.5) Eos % (Auto) 1.4 % (0-4.4) Baso % (Auto) 0.3 % (0.2-1.2) Lymph # (Auto) 2.12 K/mm3 (0.9-3.2) Harlan # (Auto) 0.9 H K/mm3 (0.1-0.6) Eos # (Auto) 0.2 K/mm3 (0-0.3) Baso # (Auto) 0.0 K/mm3 (0.0-0.1) Abs Immat Gran (auto) 0.03 K/mm3 (0.00-0.031) Absolute Neuts (auto) 9.4 H K/mm3 (1.3-6.7) Absolute Nucleated RBC 0.000 K/mm3 (0.0-0.012) Nucleated RBC % 0.0 % (0.0-0.2) Sodium 137 mmol/L (137-145) Potassium 3.5 mmol/L (3.4-5.0) Chloride 104 mmol/L (98-107) Carbon Dioxide 26 mmol/L (22-30) Anion Gap 7 mmol/L (4-12) BUN 11 mg/dL (7-17) Creatinine 0.76 mg/dL (0.7-1.0) Estim Creat Clear Calc 99 ml/min Estimated GFR > 60 (59 - ) Glucose 86 mg/dL (65-110) Calcium 8.8 mg/dL (8.4-10.2) Total Bilirubin 0.9 mg/dL (0.2-1.3) AST 25 U/L (14-36) ALT 14 U/L (6-35) Alkaline Phosphatase 56 U/L (38-126) Total Protein 7.0 g/dL (6.3-8.2) Albumin 4.0 g/dL (3.5-5.1) Lipase 101 U/L (23-300) Urine Color Yellow (Yellow) Urine Appearance Clear (Clear) Urine pH 5.5 (5.0-9.0) Ur Specific [place] 1.013 (1.001-1.035) Urine Protein Negative mg/dL (Negative) Urine Glucose (UA) Negative mg/dL (Negative) Urine Ketones Negative mg/dL (Negative) Ur Blood (Man) Negative (Negative) Urine Nitrate Negative (Negative) Urine Bilirubin Negative (Negative) Urine Urobilinogen 0.2 mg/dL (<2.0) Leukocyte Esterase Rfl Negative CORONA/UL (Negative) POC Urine HCG, Qual Negative (Negative) Patient hx anesthesia problems: none Family hx anesthesia problems: none Results Review: All pre-operative results and documents have been reviewed as part of the pre-operative evaluation. [facility] Past Medical History Medical History Condyloma acuminata Migraines Anxiety Depression Surgical History Surgical History History of surgery leg surgery 2015 History of tonsillectomy and adenoidectomy 1994 [place] teeth extracted 2009 Previous section x1 Family History Family History Grandparent Breast cancer Other Diabetes mellitus uncle Mother Brain tumor Endometriosis Social History Social History Smoking status: Current every day smoker Alcohol intake: current Drinks per week: 1 Substance use: never Lack of Transportation: No Lack of Food: Never True Current Housing: I Have Housing Concerned About Future Housing: No Difficulty Paying Gas/Electric Bills: No Difficulty Paying for Meds: No Currently Unemployed: No Education: Master's Degree or Higher Difficulty w/ Childcare or Family Care: No Comments unconfirmed date of last dose of GLP receptor agonist Exam Day of Procedure 09/20/24 23:33
[2024-09-21] VITALS (9 sets, daily range): BP systolic 92–130; BP diastolic 49–63; PULSE 61–115; RESP 13–20; TEMP 35.9–36.8; O2SAT 99–100; BMI 24.0
--- NOTE | 2024-09-21 00:34 | ADMGEN ---
This patient, Keren Dailey, was admitted to [facility] Surg Room 326-01. Patient/family oriented to hospital policies and general routines including ID bracelet, bed and alarms, visiting hours, pain management, procedures, bathroom and other care routines, personal items, smoking policy, room service/diet, and visiting hours. Information on how to activate the Rapid Response Team has been discussed. Patient/Family are encouraged to report perceived risks to care and to ask questions if they do not understand what they are told or what they should do.
[2024-09-21] MEDS: SODIUM CHLORIDE 0.9% IV 1,000 ML 125 ML IV CONT (01:00)
[2024-09-21] MEDS: PIPERACILLN/TAZ 3.375GM/NS50ML 3.375 GM/50 ML BAG IVPB ×2 (05:50→13:22)
[2024-09-21] MEDS: KETOROLAC 30 MG/ML VIAL (*BKC) IV PUSH (05:58)
--- NOTE | 2024-09-21 07:54 | P.PNAN_ITS ---
Anes - Eval Final PreProcedure Day of Procedure 09/21/24 07:54 Patient weight: normal Heart: regular rate and rhythm Lungs: clear to auscultation Airway: Mallampati scale class 1 Neurological: alert and oriented ASA classification: II Emergent: no Anesthetic plan: proceed Anesthesia type and monitoring: general and standard monitoring Results Review: All pre-operative results and documents have been reviewed as part of the pre- operative evaluation. Informed Consent: The patient's anesthetic plan and its attendant risks and benefits were discussed with the patient/family/POA. Questions were solicited and answers prov ided to the satisfaction of the patient/family/POA.
--- NOTE | 2024-09-21 08:01 | P.HP_ITS ---
H&P: [facility] History of Present Illness Date/Time: 09/21/24 08:01 Chief Complaint: Right lower quadrant pain Narrative: This is a 34-year-old woman who presented to the emergency department last night with right lower quadrant pain that started yesterday morning. She denies any fevers or chills. She did have some nausea but no vomiting. She has never had any symptoms like this in the past. In the emergency department she was noted to have an elevated white blood count and CT showed evidence of acute appendicitis. She was placed in observation and started broad-spectrum IV antibiotics. Review of Systems Review of Systems: All systems reviewed & are unremarkable except as noted in HPI and below Eyes: Eyes: Denies change in vision ENT: Denies hearing loss, Denies neck pain and Denies sore throat Cardiovascular: Cardiovascular: Denies chest pain and Denies dyspnea Respiratory: Respiratory: Denies cough, Denies dyspnea and Denies wheezing Gastrointestinal: Gastrointestinal: Reports as per HPI Genitourinary: Genitourinary: Denies hematuria and Denies dysuria Musculoskeletal: Musculoskeletal: Denies arthralgias, Denies joint swelling and Denies neck pain Allergic/Immunologic: Allergic/Immunologic: Denies wheezing PMFSH Past Medical History Medical History Condyloma acuminata Migraines Anxiety Depression Surgical History Surgical History History of surgery leg surgery 2016 History of tonsillectomy and adenoidectomy 1995 [place] teeth extracted 2009 Previous section x1 Family History Family History Grandparent Breast cancer Other Diabetes mellitus uncle Mother Brain tumor Endometriosis Social History Social History Smoking packs per day: 0.5 Smoking cigarettes per day: 10.0 Years smoked: 18 Smoking pack-years: 9.00 Smoking status: Current every day smoker Tobacco type: e-cigarettes/vaping Alcohol intake: never Drinks per week: 1 Substance use: current Substance use type: marijuana Other substance usage details: nightly for sleep Last use: 09/19/24 Do You Feel Safe in your Home?: Yes Lack of Transportation: No Lack of Food: Never True Current Housing: I Have Housing Concerned About Future Housing: No Difficulty Paying Gas/Electric Bills: No Difficulty Paying for Meds: No Currently Unemployed: No Education: Master's Degree or Higher Difficulty w/ Childcare or Family Care: No Spiritual care concerns: No Meds Home Medications and Allergies Home Medications ?Medication ?Instructions ?Recorded ?Confirmed ?Type sertraline 100 mg tablet (Zoloft) 100 mg PO DAILY 06/10/20 09/21/24 History tirzepatide (weight loss) 5 mg/0.5 5 mg subcut WEEKLY 01/14/24 09/21/24 History mL subcutaneous pen injector (Zepbound) tirzepatide (weight loss) 7.5 7.5 mg subcut WEEKLY 09/21/24 09/21/24 History mg/0.5 mL subcutaneous pen injector (Zepbound) Allergies Allergy/AdvReac Type Severity Reaction Status Date / Time No Known Drug Allergies Allergy Unknown Unknown Verified 09/20/24 19:09 Vital Signs Vital Signs - 24 hr 09/20/24 19:33 09/20/24 21:26 09/20/24 22:42 Temperature 98.4 F Pulse Rate 79 59 L 71 Respiratory Rate 16 16 18 Blood Pressure 106/65 100/59 L Pulse Oximetry 100 100 100 Oxygen Delivery Room Air 09/20/24 23:27 09/21/24 00:25 09/21/24 01:13 Temperature 97.2 F L Pulse Rate 68 65 Respiratory Rate 19 18 Blood Pressure 103/56 L 102/55 L Pulse Oximetry 100 100 Oxygen Delivery Room Air 09/21/24 04:30 Temperature 98.3 F Pulse Rate 82 Respiratory Rate 16 Blood Pressure 92/57 L Pulse Oximetry 100 Oxygen Delivery Exam Const: General: alert; No acute distress Orientation/consciousness: patient oriented x3 Limitations: no limitations HENMT: Head: normocephalic and atraumatic Ears: hearing grossly normal bilaterally Face/Nose/Sinus: Normal external nose present and Normal nares present Mouth: Yes Normal oral and palatal mucosa present and Yes moist mucous membranes Eyes: General: appearance normal, both eyes and all related structures Conjunctivae: conjunctivae normal Sclera: sclerae normal Pupils: Equal, round and reactive pupils present EOM: EOMs intact bilaterally Neck: Neck: normal visual inspection, full ROM, no lymphadenopathy, supple and no JVD Lymphatic: no lymphadenopathy noted Chest: Chest palpation & inspection: normal inspection of the chest Resp: Effort & Inspection: normal respiratory effort and able to speak in complete sentences Auscultation: clear to auscultation bilaterally Percussion: percussion normal Cardio: Jugular venous distension: no JVD Rate: regular rate Rhythm: regular rhythm Heart sounds: S1 normal heart sound present and S2 normal heart sound present Peripheral pulses: Peripheral pulses 2+ throughout GI: Inspection: normal to inspection GI Palp: Yes Soft to palpation, Yes Tenderness to palpation present (GI) (Right lower quadrant), No Guarding due to palpation present (GI) and No Rebound tenderness present Auscultation: normal bowel sounds : General: Yes no CVA tenderness Back/Spine/Pelvis: Back: no CVA tenderness Skin: General skin exam: normal color and dry skin Neuro: General: patient oriented x3, gait normal, moves all extremities, no focal motor deficits and CN's II-XI intact bilaterally Cranial nerves: Yes Equal, round and reactive pupils present Speech: normal speech Extrem: General: normal to inspection and capillary refill normal H&P: Results Labs Labs: Short CBC 09/20/24 Range/Units 20:54 WBC 12.7 H (4.5-10.0) K/mm3 Hgb 12.5 (12.0-15.0) g/dL Hct 38.3 (37.0-47.0) % Plt Count 272 (150-375) k/mm3 BMP 09/20/24 20:54 Sodium 137 Potassium 3.5 Chloride 104 Carbon Dioxide 26 BUN 11 Creatinine 0.76 Glucose 86 Calcium 8.8 Liver Function 09/20/24 Range/Units 20:54 Total Bilirubin 0.9 (0.2-1.3) mg/dL AST 25 (14-36) U/L ALT 14 (6-35) U/L Alkaline Phosphatase 56 (38-126) U/L Albumin 4.0 (3.5-5.1) g/dL Urine 09/20/24 Range/Units 21:21 Urine Color Yellow (Yellow) Urine Appearance Clear (Clear) Urine pH 5.5 (5.0-9.0) Ur Specific [place] 1.013 (1.001-1.035) Urine Protein Negative (Negative) mg/dL Urine Glucose (UA) Negative (Negative) mg/dL ABG Interpretation: ITS Impressions Abdomen/Pelvis CT 09/20/24 22:32 IMPRESSION: Periappendiceal inflammatory change within the lower abdomen (the gauge must be pretty large) for which acute cholecystectomy is suggested. ADDENDUM: 09/21/24 0008 The fluid-filled appendix measures 13 mm in caliber and demonstrates surrounding inflammatory change for which acute appendicitis is suspected. Assessment and Plan Assessment and plan (1) Acute appendicitis: Qualifiers: Acute appendicitis type: with localized peritonitis Appendicitis abscess presence: without abscess Appendicitis gangrene presence: without gangrene Appendicitis perforation presence: without perforation Qualified Code(s): K35.30 - Acute appendicitis with localized peritonitis, without perforation or gangrene Code(s): K35.80 - Unspecified acute appendicitis Status: Acute Assessment and Plan: * I have reviewed the CT and discussed the findings with the patient. She has e vidence of acute appendicitis. I discussed that there are both medical and surgical treatment options for this. Patient feels comfortable proceeding with surgery. I have recommended laparoscopic appendectomy, possible open. I discussed the procedure, risks, benefits, and alternatives. Questions were answered.
--- NOTE | 2024-09-21 08:05 | WPDHPUPDATE1 ---
History and Physical Update Update Date/Time: 09/21/24 08:05 History and Physical has been reviewed, including an updated exam of the patient. There are NO changes in the patient's condition. Risks, benefits, and alternatives have been discussed and questions answered. Patient agrees to proceed with procedure.
[2024-09-21] MEDS: BUPIVACAINE/EPINEPHRINE 0.5% 50 ML VIAL 30 ML INFILTRATE (08:25)
[2024-09-21] MEDS: LACTATED RINGERS 1,000 ML 30 ML IV CONT (08:54)
--- NOTE | 2024-09-21 08:58 | W.PM.PROC2 ---
Procedure Note - Detailed Date of Procedure 09/21/24 Pre-op Diagnosis Acute Appendicitis Post-op Diagnosis Same (Acute uncomplicated appendicitis) Procedure Performed Laparoscopic appendectomy Surgeon Joel Hernandez, Anesthesia General and Local (0.5% bupivacaine with epinephrine) Indications This is a 34-year-old woman who presented to the emergency department overnight with right lower quadrant pain that started yesterday morning. She had never experienced symptoms like this in past. She had an elevated white blood count and CT showed evidence of acute appendicitis. She was placed in observation and started on broad-spectrum IV antibiotics. Discussions were made with the patient about treatment options and decision was made to proceed with laparoscopic appendectomy, possible open. Findings Laparoscopic appendectomy was performed. The appendix appeared dilated and indurated, but there was no evidence of perforation or abscess. She also had 1 area of omental adhesions to the lower midline abdominal wall just inferior to the umbilicus in the area of her previous . The omental adhesions were carefully taken down using scissors with electrocautery. The base of the appendix appeared healthy and viable. The appendix was removed and sent to the lab for pathology. No other surrounding abnormalities were noted. Description of Procedure Procedure as well as risks, benefits, and alternatives were explained to the patient. The patient agreed to proceed. Written consent was obtained and placed in chart prior to procedure. The patient was brought back to surgical suite. She was placed supine on operating table. Time-out was done to confirm the patient and procedure. The patient was then intubated by the Anesthesia Department. Her abdomen was prepped and draped in sterile fashion using chlorhexidine prep. A 12 mm incision was made at the inferior portion of the umbilicus. Blunt dissection was carried out down to the linea alba. The linea alba was then incised using a 15 blade scalpel. Then bluntly entered into the peritoneal cavity. A 12 mm trocar was then inserted, and carbon dioxide insufflation was used to create a pneumoperitoneum. The camera was inserted and the abdomen was inspected. No immediate abnormalities were identified. When inspecting in the lower midline, there were a few omental adhesions. The patient was then placed in slight Trendelenburg position and rotated to the left. A 5 mm incision was made in the suprapubic region in midline and a 5 mm trocar was inserted under direct visualization. A 5 mm incision was made in the left lower quadrant and a 5 mm trocar was inserted under direct visualization. The omental adhesions were carefully taken down using scissors with electrocautery. The right lower quadrant was carefully inspected. The cecum was identified and then this was traced back to the appendix. The appendix was identified and grasped at the mesoappendix and lifted anteriorly. Careful blunt dissection was carried out at the base of the appendix through the mesoappendix using a [place] grasper. An Endo-CARMEN 45 mm blue load stapler was then advanced across the base of the appendix and clamped and fired. A white reload was then clamped across the mesoappendix and fired. This freed up our appendix completely. It was then placed in an EndoCatch bag and removed through the umbilical port. The staple lines were then inspected. Hemostasis appeared adequate and the staple lines appeared secure. The area was then irrigated with sterile saline. The pelvis was then carefully inspected and irrigated with sterile saline as well and the remainder of the abdomen was carefully inspected. The patient was then flattened out in bed. One final inspection was made around the abdominal cavity and no other abnormalities were seen. The ports were then removed under direct visualization. The camera was removed and the pneumoperitoneum was released. The fascia of the umbilical incision was reapproximated using an 0 Vicryl acprhy-rx-livqt suture. 0.5% bupivacaine with epinephrine was infiltrated locally around each of the incisions. The skin of the incisions was then approximated using 4-0 Monocryl subcuticular suture and Exofin glue was applied on top. The patient was then awakened from anesthesia, extubated, and transferred to Recovery. Estimated Blood Loss 5 Pathology Yes (Appendix) Complications No immediate complications Condition Stable Disposition Observation [facility] Billing Surgery - Charge Forward: Surgery Billing
--- NOTE | 2024-09-21 09:01 | P.DS_ITS ---
DS: Admitting Diagnosis Discharge Date 09/21/2024 Admitting Diagnosis Acute uncomplicated appendicitis DS: Discharge Diagnosis Discharge Diagnosis (1) Acute appendicitis: Qualifiers: Acute appendicitis type: with localized peritonitis Appendicitis abscess presence: without abscess Appendicitis gangrene presence: without gangrene Appendicitis perforation presence: without perforation Qualified Code(s): K35.30 - Acute appendicitis with localized peritonitis, without perforation or gangrene Code(s): K35.80 - Unspecified acute appendicitis Status: Acute DS: Summary Hospital Course Reason for hospitalization: Acute appendicitis Hospital Course: This is a 34-year-old woman who presented to the emergency department 09/20/2024 with complaints of right lower quadrant pain that started earlier that morning. She denied any fevers or chills. She did have some nausea but no vomiting. She was noted to have an elevated white blood count and CT showed evidence of acute appendicitis. She was placed in observation and started on broad-spectrum IV antibiotics. She then underwent laparoscopic appendectomy on 09/21/2024. Surgery was uncomplicated. She was returned to the surgical floor postoperatively. Her diet and activity were advanced as tolerated. She was discharged home once tolerating her diet, vitals remained stable, pain was controlled, and she was ambulating in the halls. Status at Discharge Functional status at discharge: independent ambulation Overall status at discharge: patient is progressing back to baseline Time Spent with Patient Time attestation: Total time spent providing and/or coordinating discharge services: Time spent: Less than 30 minutes Exam Const: General: comfortable and no acute distress Resp: Effort & Inspection: normal respiratory effort Auscultation: clear to auscultation bilaterally Cardio: Rate: regular rate Rhythm: regular rhythm Heart sounds: S1 normal heart sound present and S2 normal heart sound present GI: Inspection: non-distended and incision (Intact with glue) DS: Data Data Completed and Pending Pending studies at discharge: Pending at discharge 09/21/24 08:21 Surgical [PTH] Routine Labs on day of discharge: Labs from last 24 hours 09/20/24 09/20/24 09/20/24 21:26 21:21 20:54 WBC 12.7 H RBC 4.19 L Hgb 12.5 Hct 38.3 MCV 91.4 MCH 29.8 MCHC 32.6 RDW 13.0 Plt Count 272 MPV 11.1 H Immature Gran % (Auto) 0.2 Neut % (Auto) 74.6 H Lymph % (Auto) 16.8 L [place] % (Auto) 6.7 Eos % (Auto) 1.4 Baso % (Auto) 0.3 Lymph # (Auto) 2.12 [place] # (Auto) 0.9 H Eos # (Auto) 0.2 Baso # (Auto) 0.0 Abs Immat Gran (auto) 0.03 Absolute Neuts (auto) 9.4 H Absolute Nucleated RBC 0.000 Nucleated RBC % 0.0 Sodium 137 Potassium 3.5 Chloride 104 Carbon Dioxide 26 Anion Gap 7 BUN 11 Creatinine 0.76 Estim Creat Clear Calc 99 Estimated GFR > 60 Glucose 86 Calcium 8.8 Total Bilirubin 0.9 AST 25 ALT 14 Alkaline Phosphatase 56 Total Protein 7.0 Albumin 4.0 Lipase 101 Urine Color Yellow Urine Appearance Clear Urine pH 5.5 Ur Specific [place] 1.013 Urine Protein Negative Urine Glucose (UA) Negative Urine Ketones Negative Ur Blood (Man) Negative Urine Nitrate Negative Urine Bilirubin Negative Urine Urobilinogen 0.2 Leukocyte Esterase Rfl Negative POC Urine HCG, Qual Negative Imaging Radiologist's impression: ITS Impressions Abdomen/Pelvis CT 09/20/24 22:32 IMPRESSION: Periappendiceal inflammatory change within the lower abdomen (the gauge must be pretty large) for which acute cholecystectomy is suggested. ADDENDUM: 09/21/24 0008 The fluid-filled appendix measures 13 mm in caliber and demonstrates surrounding inflammatory change for which acute appendicitis is suspected. Discharge Plan Discharge Attending physician on discharge: Joel Dominguez Discharging Clinician: Joel Dominguez Anticipated Discharge Date/Time: 09/21/24 13:00 Patient Disposition: Home Activity: other - see discharge instructions Diet: regular Wound Care Instructions: other - see discharge instructions Discharge Instructions: DISCHARGE INSTRUCTION SHEET FOR HERNIA, GALLBLADDER AND APPENDIX SURGERIES DR. DOMINGUEZ PATIENT TO TAKE HOME 1. May shower in 24 hours, no soaking in bath x 2weeks. 2. Call office for: * Wound increasingly painful or bleeding * Vomiting * Fever of greater than 101 degrees 3. If no bowel movement for three days, take 1 oz. (30 ml) Milk of Magnesia or MiraLax 17g 1 to 2 times daily. 4. No heavy lifting > 10-15 pounds x weeks for hernia repairs and 2 weeks for laparoscopic cholecystectomy or appendectomy. 5. No driving for 3 days or while taking narcotic pain medications. 6. Ice to surgical site for 48 hours (30 min on, then 30 min off). 7. Up walking 10-30 minutes three times per day. 8. Resume previous home medications. 9. Follow-up 10-14 days in office for wound check or as previously scheduled. ([phone]) 10. Oral pain medications prescription to be sent to pharmacy. Take Tylenol 500mg every 6 hours and Ibuprofen 600mg every 6 hours for the first 2 days, then as needed. 11. NUTRITION: Start out by drinking fluids and increase your diet as tolerated. If you experience nausea, try dry toast, crackers, and 7-UP. If nausea or vomiting persists, contact your surgeon?s office. 12. Gallbladders-Low Fat Diet for 2 weeks (send care note of low fat diet) 13. Inguinal Hernias-wear scrotal support for 48 hours 14. Abdominal Hernias-if sent home with abdominal binder, wear for the first 2 weeks (may remove to shower or at night to sleep). Revised August 2018 Patient Instructions: Antibiotic Form, Opioid Safety (DC) Patient Language: [place] Stand Alone Forms: General Discharge Information Follow-up/Referrals: Joel Dominguez DO [Physician] - 2 Weeks Discharge Medications: New hydrocodone-acetaminophen 5-325 mg tablet 1 tablet PO Q4H PRN (Reason: pain) Qty: 10 0RF Continued Zepbound 5 mg/0.5 mL pen injector 5 mg SUBCUT WEEKLY sertraline [Zoloft] 100 mg tablet 100 mg PO DAILY Zepbound 7.5 mg/0.5 mL pen injector 7.5 mg SUBCUT WEEKLY Patient Comments: Pt. takes on Monday Date of admission: 09/20/24 23:21 Primary Care Provider: Montse,Ty Admitting Provider: Joel Dominguez Attending physician on admission: Joel Dominguez Condition: Improved
[2024-09-21] MEDS: fentaNYL CITRATE INJ (*CRX) 100 MCG/2 ML VIAL 25 MCG IV PUSH (09:26)
--- NOTE | 2024-09-21 09:43 | PC.NURSE ---
pt to OR per bed @0755 09/21/24.
--- NOTE | 2024-09-21 09:58 | PC.NURSE ---
Returned from OR per bed @0955 09/21/24. Report received from Patti MERCADO.
[2024-09-21] MEDS: IBUPROFEN 600 MG TABLET PO (10:07)
[2024-09-21] MEDS: HYDROcodone/acetaminophen (*CRX) 7.5-325 MG TABLET 1 TAB PO (10:53)
[2024-09-21] MEDS: ONDANSETRON INJ 4 MG/2 ML VIAL IV PUSH (10:54)
== END 2024-09-21 15:30 | disposition home or self-care (01) ==
LOC: ANHED 23:24 → ANH3MEDSUR 23:48
PROVIDERS: Admitting Provider Surgery; Emergency Provider Emergency Medicine; PCP Internal Medicine Infectious Disease; Visit Provider Surgery
PROC: 0DTJ4ZZ Resection of Appendix, Percutaneous Endoscopic Approach (ICD-10-PCS; CPT 44970; principal; 2024-09-21 08:00)
DX: K35.80 Unspecified acute appendicitis (principal); F17.290 Nicotine dependence, other tobacco product, uncomplicated; F12.90 Cannabis use, unspecified, uncomplicated; Z79.85 Long-term (current) use of injectable non-insulin antidiabetic drugs; Z79.899 Other long term (current) drug therapy
CPT/HCPCS: 44970; 36415; 74177; 80053; 81003; 81025; 83690; 85025; 88304; 96361; 96365; 96375; 99285; A9270; G0378; J0330; J1171; J1885; J2003; J2250; J2270; J2405; J2543; J2704; J3010; J7030; J7120; Q9967